=== PATIENT | female | born 1945 | race Caucasian/White ===

== ENCOUNTER 2021-08-25 22:04 | Inpatient (IN) | payer MEDICARE, OTHER ==
[2021-08-25] MEDS ORDERED: NA CHLORIDE 0.9% 0 ML ONE (22:30)
[2021-08-25] MEDS ORDERED: LORazepam 2 MG/ML VIAL ONE (22:30)
[2021-08-25] MEDS ORDERED: LEVETIRACETAM 500 MG/5 ML VIAL IV ONE (22:30)
[2021-08-25] MEDS ORDERED: NA CHLORIDE 0.9% 100 ML IV ONE (22:31)
[2021-08-25] MEDS ORDERED: LABETALOL 20 MG/4ML SYRINGE IV ONE (22:38)
[2021-08-25 22:58] LABS: Absolute Lymphocytes (CBC) 1.6 K/uL (0.7-4.9); Hematocrit 38.7 % (36.0-45.0); MPV 8.8 fL (7.6-11.3); Protime INR 1.1; RBC Red Blood Cell Count 4.65 M/uL (3.86-4.86)
[2021-08-25 23:02] LABS: Urine Blood 1+ (Negative); Urine Glucose Trace (Negative); Urine Protein 3+ (Negative); Urine Specific Gravity 1.025 (1.005-1.030); Urine pH 6.5 (5.0-7.0)
--- NOTE | 2021-08-25 23:55 | EDPHYS ---
Physician Documentation [facility] Name: Clemencia Bryant Age: 76 yrs Sex: Female : 1945 Arrival Date: 08/25/2021 Time: 22:02 Bed 2 Private MD: ED Sundeep Ruiz HPI: 08/25 22:28 This 76 yrs old Female presents to ER via Unassigned with complaints of leonidas seizure , no hx. 22:28 The patient presents after having a single isolated seizure, that lasted an unknown leonidas period of time. Character of seizure(s): Loss of consciousness: the patient experienced loss of consciousness, Motor activity: generalized, Incontinence: none, Apnea: the patient did not experience apnea, Circulation: the patient did not experience evidence of pulse disturbance. Seizure onset: just prior to arrival. Context: the seizure(s) was witnessed, by a bystander, occurred at home, occurred while the patient was at rest. Seizure Hx: the patient has no previous seizure history. Associated injury: The patient did not suffer any apparent associated injury. EMS care: none. The patient has not experienced similar symptoms in the past. Historical: - Allergies: 23:05 Codeine; lp1 - Home Meds: 23:05 Unable to obtain [Active]; lp1 - PMHx: 23:05 Unable to Obtain; lp1 - Immunization history:: Adult Immunizations unknown. - Family history:: not pertinent. - Social history:: Smoking status: unknown. ROS: 22:28 Constitutional: Negative for fever, chills, and weight loss, Eyes: Negative for injury, leonidas pain, redness, and discharge, ENT: Negative for injury, pain, and discharge, Neck: Negative for injury, pain, and swelling, Cardiovascular: Negative for chest pain, palpitations, and edema, Respiratory: Negative for shortness of breath, cough, wheezing, and pleuritic chest pain, Abdomen/GI: Negative for abdominal pain, nausea, vomiting, diarrhea, and constipation, Back: Negative for injury and pain, : Negative for injury, bleeding, discharge, and swelling, MS/Extremity: Negative for injury and deformity, Skin: Negative for injury, rash, and discoloration, Neuro: Negative for headache, weakness, numbness, tingling, and seizure, Psych: Negative for depression, anxiety, suicide ideation, homicidal ideation, and hallucinations, Allergy/Immunology: Negative for hives, rash, and allergies, Endocrine: Negative for neck swelling, polydipsia, polyuria, polyphagia, and marked weight changes, Hematologic/Lymphatic: Negative for swollen nodes, abnormal bleeding, and unusual bruising. 22:28 Neuro: Positive for altered mental status, seizure activity, weakness. Exam: 22:28 Constitutional: This is a well developed, well nourished patient who is awake, alert, leonidas and in no acute distress. Head/Face: Normocephalic, atraumatic. Eyes: Pupils equal round and reactive to light, extra-ocular motions intact. Lids and lashes normal. Conjunctiva and sclera are non-icteric and not injected. Cornea within normal limits. Periorbital areas with no swelling, redness, or edema. ENT: Nares patent. No nasal discharge, no septal abnormalities noted. Tympanic membranes are normal and external auditory canals are clear. Oropharynx with no redness, swelling, or masses, exudates, or evidence of obstruction, uvula midline. Mucous membranes moist. Neck: Trachea midline, no thyromegaly or masses palpated, and no cervical lymphadenopathy. Supple, full range of motion without nuchal rigidity, or vertebral point tenderness. No Meningismus. Chest/axilla: Normal chest wall appearance and motion. Nontender with no deformity. No lesions are appreciated. Cardiovascular: Regular rate and rhythm with a normal S1 and S2. No gallops, murmurs, or rubs. Normal PMI, no JVD. No pulse deficits. Respiratory: Lungs have equal breath sounds bilaterally, clear to auscultation and percussion. No rales, rhonchi or wheezes noted. No increased work of breathing, no retractions or nasal flaring. Abdomen/GI: Soft, non-tender, with normal bowel sounds. No distension or tympany. No guarding or rebound. No evidence of tenderness throughout. Back: No spinal tenderness. No costovertebral tenderness. Full range of motion. Female : Normal external genitalia. Skin: Warm, dry with normal turgor. Normal color with no rashes, no lesions, and no evidence of cellulitis. MS/ Extremity: Pulses equal, no cyanosis. Neurovascular intact. Full, normal range of motion. Psych: Awake, alert, with orientation to person, place and time. Behavior, mood, and affect are within normal limits. 22:28 Neuro: Orientation: unable to test, Mentation: unable to test, Memory: unable to test, Cranial nerves: no acute changes, Cerebellar function: unable to test, Motor: unable to test, Sensation: no obvious gross deficits, appropriate no acute changes, Gait: not tested. Babinski testing is normal, seizure activity, grand mal type is displayed. 22:48 ECG was reviewed by the Attending Physician. leonidas Vital Signs: 22:05 BP 191 / 127; Pulse 118; Resp 17 S; Pulse Ox 95% on R/A; al4 22:06 Temp 97.9(A); lp1 22:25 BP 263 / 87; Pulse 102; Resp 17; Pulse Ox 100% ; lp1 22:30 BP 183 / 75; Pulse 94; Resp 18; Pulse Ox 100% on 15% Non-rebreather mask; lp1 22:45 BP 174 / 63; Pulse 92; Resp 17; Pulse Ox 100% on 15% Non-rebreather mask; lp1 23:00 BP 159 / 79; Pulse 91; Resp 22; Pulse Ox 100% on 15% Non-rebreather mask; Weight 40.82 lp1 kg; 23:30 BP 206 / 75; Pulse 111; Resp 23; Pulse Ox 100% on 2 lpm NC; lp1 04/06 00:00 BP 235 / 85; Pulse 113; Resp 26; Pulse Ox 100% on 2 lpm NC; lp1 00:45 BP 235 / 92; Pulse 95; Resp 22; Pulse Ox 100% on 2 lpm NC; lp1 01:15 BP 213 / 88; Pulse 86; Resp 24; Pulse Ox 99% on 2 lpm NC; lp1 01:45 BP 218 / 92; Pulse 95; Resp 26; Pulse Ox 99% on 2 lpm NC; lp1 02:00 BP 211 / 83; Pulse 92; Resp 26; Pulse Ox 99% on 2 lpm NC; lp1 02:15 BP 167 / 80; Pulse 95; Resp 18; Pulse Ox 99% on 2 lpm NC; lp1 02:30 BP 177 / 70; Pulse 92; Resp 19; Pulse Ox 99% on 2 lpm NC; lp1 02:45 BP 176 / 72; Pulse 95; Resp 20; Pulse Ox 99% on 2 lpm NC; lp 03:00 BP 169 / 75; Pulse 95; Resp 20; Pulse Ox 100% on 2 lpm NC; lp1 Trice Coma Score: 08/25 22:25 Eye Response: to pain(2). Verbal Response: incomprehensible(2). Motor Response: lp1 localizes pain(5). Total: 9. 08/26 00:00 Eye Response: to pain(2). Verbal Response: incomprehensible(2). Motor Response: lp1 withdraws from pain(4). Total: 8. 02:00 Eye Response: to voice(3). Verbal Response: inappropriate words(3). Motor Response: lp1 withdraws from pain(4). Total: 10. MDM: 08/25 22:12 Patient medically screened. [facility] 22:31 Differential diagnosis: cerebral vascular accident, cardiac arrhythmia, seizure. Data [facility] reviewed: vital signs, nurses notes, lab test result(s), EKG, radiologic studies, CT scan. Data interpreted: life science technical officer: rate is 115 beats/min, rhythm is regular, Pulse oximetry: on room air is 99 %. Test interpretation: by ED physician or midlevel provider: ECG, plain radiologic studies. Counseling: I had a detailed discussion with the patient and/or guardian regarding: the historical points, exam findings, and any diagnostic results supporting the discharge/admit diagnosis, lab results, radiology results. 08/25 22:17 Order name: Basic Metabolic Panel; Complete Time: : [facility] 08/25 22:17 Order name: CBC with Diff; Complete Time: 23:53 [facility] 08/25 22:17 Order name: LFT's; Complete Time: : [facility] 08/25 22:17 Order name: Magnesium; Complete Time: : [facility] 08/25 22:17 Order name: NT PRO-BNP; Complete Time: : [facility] 08/25 22:17 Order name: PT-INR; Complete Time: 23:53 [facility] 08/25 22:17 Order name: Troponin HS; Complete Time: : [facility] 08/25 22:17 Order name: XRAY Chest (1 view) [facility] 08/25 22:17 Order name: Lipase; Complete Time: :27 [facility] 08/25 22:17 Order name: Urine Culture [facility] 08/25 22:17 Order name: SARS-COV-2 RT PCR (Document "Date of Onset" if Symptomatic); Complete Time: [facility] 23:53 08/25 23:02 Order name: Urine Dipstick-Ancillary; Complete Time: 23:53 EDMS 08/26 00:16 Order name: Blood Culture Adult (2) [facility] 08/26 00:16 Order name: Lactate; Complete Time: 01:15 [facility] 08/25 22:17 Order name: EKG; Complete Time: 22:18 [facility] 08/25 22:17 Order name: Cardiac monitoring; Complete Time: 22:40 [facility] 08/25 22:17 Order name: EKG - Nurse/Tech; Complete Time: 23:03 [facility] 08/25 22:17 Order name: IV Saline Lock; Complete Time: 22:40 [facility] 08/25 22:17 Order name: Labs collected and sent; Complete Time: 22:40 [facility] 08/25 22:17 Order name: O2 Per Protocol; Complete Time: 22:40 [facility] 08/25 22:17 Order name: CT Head Brain wo Cont 08/25 22:17 Order name: O2 Sat Monitoring; Complete Time: 22:40 [facility] 08/25 22:17 Order name: Urine Dipstick-Ancillary (obtain specimen); Complete Time: 23:03 [facility] 08/25 22:17 Order name: Seizure Precautions; Complete Time: 22:40 [facility] 08/25 23:04 Order name: Labs - recollect needed: green top needed; Complete Time: 00:58 mw2 08/26 01:28 Order name: Shi; Complete Time: 02:22 [facility] 08/26 01:37 Order name: IV - Large Bore; Complete Time: 02:29 [facility] EC:48 Rate is 95 beats/min. Rhythm is regular. QRS [place] is Normal. NE interval is normal. QRS leonidas interval is normal. QT interval is normal. No Q waves. T waves are Normal. No ST changes noted. Clinical impression: NSR w/ Non-specific ST/T Changes and No evidence of ischemia. Interpreted by me. Reviewed by me. Administered Medications: 22:30 Drug: Ativan (LORazepam) 2 mg Route: IVP; Site: right hand; lp1 23:00 Follow up: Response: Marked relief of symptoms lp1 22:32 Drug: Keppra (levETIRAcetam) 1000 mg Route: IV; Rate: per protocol; Site: right hand; lp1 22:45 Follow up: IV Status: Completed infusion; IV Intake: 100ml lp1 08/26 00:17 Drug: Labetalol 10 mg Route: IVP; Infused Over: 2 mins; Site: right wrist; al4 01:01 Drug: Labetalol 10 mg Route: IVP; Infused Over: 2 mins; Site: left wrist; al4 01:05 Follow up: MD aware of medication administration al4 01:53 Follow up: Response: Blood pressure is lowered lp1 01:52 Drug: Magnesium Sulfate 1 grams Route: IVPB; Infused Over: 1 hrs; Site: left forearm; lp1 02:51 Follow up: IV Status: Completed infusion; IV Intake: 100ml lp1 01:52 Drug: NS 0.9% with KCl 20 mEq/L 1000 ml Route: IV; Rate: 100 ml/min; Site: left forearm;lp1 02:51 Follow up: IV Status: Infusion continued upon admission lp1 01:53 Drug: Zosyn (piperacillin-tazobactam) 3.375 grams Route: IVPB; Infused Over: 60 mins; lp1 Site: right wrist; 02:51 Follow up: IV Status: Completed infusion; IV Intake: 100ml lp1 01:53 Not Given (Patient unable to follow commands at this time ): Labetalol 100 mg PO once lp1 02:03 Drug: Cardene (niCARdipine) 5 mg/hr Route: IV; Rate: per protocol; Site: left forearm; lp1 02:22 Follow up: Rate change 2.5 mg/hr lp1 02:51 Follow up: IV Status: Infusion continued upon admission lp1 02:51 Drug: Potassium Chloride 20 mEq Route: IV; Rate: per protocol; Site: left forearm; lp1 02:54 Follow up: IV Status: Infusion continued upon admission lp1 Disposition Summary: 08/25/21 23:55 Hospitalization Ordered Hospitalization Status: Inpatient Admission leonidas Provider: Eran Dosuza cha Condition: Fair leonidas Problem: new leonidas Symptoms: have improved leonidas Bed/Room Type: Standard leonidas Location: Intensive Care Unit(08/26/21 02:17) cg Room Assignment: 3-(08/26/21 02:17) cg Diagnosis - Epileptic seizures related to external causes, not intractable leonidas - Essential (primary) hypertension leonidas - Pneumonia due to other specified bacteria - bilateral leonidas - Hypokalemia leonidas - Hypomagnesemia leonidas - Acute kidney failure, unspecified leonidas - Hypertensive encephalopathy leonidas Forms: - Medication Reconciliation Form leonidas - SBAR form leonidas Signatures: Dispatcher [employer] EDSundeep Moran MD MD cha Pena, Laura, RN RN lp1 Ashley Cedillo RN RN Lisseth Mcfadden 2 Devon Chavez4 Corrections: (The following items were deleted from the chart) 08/25 23:05 22:33 Allergies: No Known Allergies; al4 lp1 08/26 01:39 04 23:55 leonidas 08/26 01:53 01:39 215 cg cg 02:17 08/25 23:55 Telemetry/MedSurg (Inpatient) leonidas 08/26 02:17 01:53 cg cg
--- NOTE | 2021-08-25 23:55 | ER ---
Nurse's Notes [facility] Name: Clemencia Bryant Age: 76 yrs Sex: Female : 1945 Arrival Date: 08/25/2021 Time: 22:02 Bed 2 Private MD: Diagnosis: Epileptic seizures related to external causes, not intractable;Essential (primary) hypertension;Pneumonia due to other specified bacteria-bilateral;Hypokalemia;Hypomagnesemia;Acute kidney failure, unspecified;Hypertensive encephalopathy Presentation: 08/25 22:05 Initial Sepsis Screen: Does the patient meet any 2 criteria? No. Patient's initial al4 sepsis screen is negative. Does the patient have a suspected source of infection? No. Patient's initial sepsis screen is negative. Risk Assessment: Do you want to hurt yourself or someone else? Patient reports no desire to harm self or others. Onset of symptoms was August 25, 2021. 22:05 Acuity: [place] 3 al4 22:23 Chief complaint: EMS states: patient found unresponsive, contracted, possible seizure. al4 BGL 146. Patient has not been verbal since arrival. Son called EMS. No baseline orientation was noted. 22:23 Method Of Arrival: EMS al4 22:30 Coronavirus screen: patient unable to respond appropriately to questions for COVID lp1 screening. Ebola Screen: No symptoms or risks identified at this time. 22:45 Acuity: [place] 2 lp1 Historical: - Allergies: 23:05 Codeine; lp1 - Home Meds: 23:05 Unable to obtain [Active]; lp1 - PMHx: 23:05 Unable to Obtain; lp1 - Immunization history:: Adult Immunizations unknown. - Family history:: not pertinent. - Social history:: Smoking status: unknown. Screenin:47 Abuse screen: Denies threats or abuse. Denies injuries from another. Nutritional lp1 screening: No deficits noted. Tuberculosis screening: No symptoms or risk factors identified. Fall Risk Total [place] Fall Scale indicates High Risk Score (45 or more points). Fall prevention measures have been instituted. Side Rails Up X 2 Frequent Obs/Assessments Occuring Family Present and informed to notify staff if the need to leave the bedside As available patient and family educated on Fall Prevention Program and Strategies. Assessment: 22:28 Neuro: Seizure activity noted at this time. Type of seizure: tonic seizure. Seizure lp1 lasted approximately 2 minutes. Patient is post-ictal at this time. 22:30 General: Appears cachectic, Behavior is unresponsive. Neuro: Level of Consciousness is lp1 post ictal, Pupils are dilated. Cardiovascular: Capillary refill < 3 seconds in bilateral fingers toes Patient's skin is warm and dry. Respiratory: Airway is patent Respiratory effort is even, shallow. GI: Abdomen is flat. : No deficits noted. EENT: No deficits noted. Derm: Skin is fragile, is thin, with poor turgor Skin is dry, Small lesion noted to left side of nose, no drainage. Musculoskeletal: Range of motion: intact in all extremities. 23:04 Reassessment: Patient's son at bedside, reports patient does not take home medications lp1 as prescribed. 23:05 Reassessment: Verbal order from Dr. Skinner to hold Labetalol medication ordered at lp1 this time. 23:20 Reassessment: Patient returned from CT. lp1 08/26 00:57 Reassessment: TRENT Cao, Hospitalist at bedside to discuss plan of care with lp1 patient and 2 sons at bedside. 00:57 Neuro: Level of Consciousness is unresponsive, Responsive to painful stimuli. lp1 Respiratory: Airway is patent Respiratory effort is even. Derm: Skin is fragile, is thin, with poor turgor Skin is dry, Skin is pink. 01:30 Reassessment: Discussed with Dr. Skinner patient's continued elevated BP; Orders given.lp1 01:30 General: Appears in no apparent distress. Behavior is unresponsive. Responsive to lp1 painful stimuli. Pain: Unable to use pain scale. FLACC scale score is 0 out of 10. Cardiovascular: Patient's skin is warm and dry. Rhythm is regular. Respiratory: Airway is patent Respiratory effort is even, Respiratory pattern is regular. Derm: Skin is fragile, is thin, with poor turgor Skin is dry, Skin is pink. Musculoskeletal: Range of motion: intact in all extremities. Vital Signs: 08/25 22:05 BP 191 / 127; Pulse 118; Resp 17 S; Pulse Ox 95% on R/A; al4 22:06 Temp 97.9(A); lp1 22:25 BP 263 / 87; Pulse 102; Resp 17; Pulse Ox 100% ; lp1 22:30 BP 183 / 75; Pulse 94; Resp 18; Pulse Ox 100% on 15% Non-rebreather mask; lp1 22:45 BP 174 / 63; Pulse 92; Resp 17; Pulse Ox 100% on 15% Non-rebreather mask; lp1 23:00 BP 159 / 79; Pulse 91; Resp 22; Pulse Ox 100% on 15% Non-rebreather mask; Weight 40.82 lp1 kg; 23:30 BP 206 / 75; Pulse 111; Resp 23; Pulse Ox 100% on 2 lpm NC; lp1 04 00:00 BP 235 / 85; Pulse 113; Resp 26; Pulse Ox 100% on 2 lpm NC; lp1 00:45 BP 235 / 92; Pulse 95; Resp 22; Pulse Ox 100% on 2 lpm NC; lp1 01:15 BP 213 / 88; Pulse 86; Resp 24; Pulse Ox 99% on 2 lpm NC; lp1 01:45 BP 218 / 92; Pulse 95; Resp 26; Pulse Ox 99% on 2 lpm NC; lp1 02:00 BP 211 / 83; Pulse 92; Resp 26; Pulse Ox 99% on 2 lpm NC; lp1 02:15 BP 167 / 80; Pulse 95; Resp 18; Pulse Ox 99% on 2 lpm NC; lp1 02:30 BP 177 / 70; Pulse 92; Resp 19; Pulse Ox 99% on 2 lpm NC; lp1 02:45 BP 176 / 72; Pulse 95; Resp 20; Pulse Ox 99% on 2 lpm NC; lp1 03:00 BP 169 / 75; Pulse 95; Resp 20; Pulse Ox 100% on 2 lpm NC; lp1 Trice Coma Score: 08/25 22:25 Eye Response: to pain(2). Verbal Response: incomprehensible(2). Motor Response: lp1 localizes pain(5). Total: 9. 08/26 00:00 Eye Response: to pain(2). Verbal Response: incomprehensible(2). Motor Response: lp1 withdraws from pain(4). Total: 8. 02:00 Eye Response: to voice(3). Verbal Response: inappropriate words(3). Motor Response: lp1 withdraws from pain(4). Total: 10. ED Course: 08/25 22:02 Patient arrived in ED. lp1 22:12 Sundeep Skinner MD is Attending Physician. leonidas 22:20 Patient has correct armband on for positive identification. Bed in low position. Call lp1 light in reach. Seizure precautions initiated. security monitor on. Pulse ox on. NIBP on. 22:25 Inserted saline lock: 24 gauge in right hand, using aseptic technique. Blood collected. lp1 22:33 Triage completed. al4 23:00 Straight cath inserted, using sterile technique, 16 Fr. Specimen obtained. lp1 23:03 Arm band placed on right wrist. lp1 23:22 CT Head Brain wo Cont In Process Unspecified. EDMS 23:41 XRAY Chest (1 view) In Process Unspecified. EDMS 23:47 Ameena Nieto RN is Primary Nurse. lp1 23:54 Eran Dsouza is Hospitalizing Provider. [facility] 08/26 00:45 Inserted saline lock: 22 gauge in left forearm, using aseptic technique. Blood lp1 collected. 00:45 First set of blood cultures drawn by me. lp1 01:26 Notified ED physician of a critical lab result(s). potassium of 2.8 Dr Brody carr notified. 02:20 Shi cath inserted, using sterile technique, 16 Fr., by me, balloon inflated, to lp1 gravity drainage. 02:24 No provider procedures requiring assistance completed. Patient admitted, IV remains in lp1 place. Administered Medications: 08/25 22:30 Drug: Ativan (LORazepam) 2 mg Route: IVP; Site: right hand; lp1 23:00 Follow up: Response: Marked relief of symptoms lp1 22:32 Drug: Keppra (levETIRAcetam) 1000 mg Route: IV; Rate: per protocol; Site: right hand; lp1 22:45 Follow up: IV Status: Completed infusion; IV Intake: 100ml 1 08/26 00:17 Drug: Labetalol 10 mg Route: IVP; Infused Over: 2 mins; Site: right wrist; al4 01:01 Drug: Labetalol 10 mg Route: IVP; Infused Over: 2 mins; Site: left wrist; al4 01:05 Follow up: MD aware of medication administration al4 01:53 Follow up: Response: Blood pressure is lowered lp1 01:52 Drug: Magnesium Sulfate 1 grams Route: IVPB; Infused Over: 1 hrs; Site: left forearm; lp1 02:51 Follow up: IV Status: Completed infusion; IV Intake: 100ml lp1 01:52 Drug: NS 0.9% with KCl 20 mEq/L 1000 ml Route: IV; Rate: 100 ml/min; Site: left forearm;lp1 02:51 Follow up: IV Status: Infusion continued upon admission lp1 01:53 Drug: Zosyn (piperacillin-tazobactam) 3.375 grams Route: IVPB; Infused Over: 60 mins; lp1 Site: right wrist; 02:51 Follow up: IV Status: Completed infusion; IV Intake: 100ml lp1 01:53 Not Given (Patient unable to follow commands at this time ): Labetalol 100 mg PO once lp1 02:03 Drug: Cardene (niCARdipine) 5 mg/hr Route: IV; Rate: per protocol; Site: left forearm; lp1 02:22 Follow up: Rate change 2.5 mg/hr lp1 02:51 Follow up: IV Status: Infusion continued upon admission lp1 02:51 Drug: Potassium Chloride 20 mEq Route: IV; Rate: per protocol; Site: left forearm; lp1 02:54 Follow up: IV Status: Infusion continued upon admission lp1 Intake: 08/25 22:45 IV: 100ml; Total: 100ml. lp1 08/26 02:51 IV: 100ml; Total: 200ml. lp1 02:51 IV: 100ml; Total: 300ml. lp1 Outcome: 08/25 23:55 Decision to Hospitalize by Provider. leonidas 08/26 02:39 critical lp1 Instructed on the need for admit. 03:00 Admitted to ICU accompanied by nurse, room 3, with oxygen, on monitor, with chart, lp1 Report called to YOLANDA Farmer 03:10 Patient left the ED. lp1 Signatures: Dispatcher [employer] EDMS Sundeep Skinner MD MD cha Ballard, Brenda, RN RN bb Pena, Laura, RN RN lp1 Devon Chavez4 Corrections: (The following items were deleted from the chart) 08/25 23:05 22:33 Allergies: No Known Allergies; al4 lp1 23:24 23:00 BP 159 / 79; Pulse 91bpm; Resp 22bpm; Pulse Ox 100% 02 15% Non-rebreather mask; lp1 lp1 08/26 00:17 00:16 Labetalol 10 mg IVP in right wrist over 2 mins al4 al4 01:52 01:52 Potassium Chloride 20 mEq IV at per protocol in left forearm lp1 lp1 02:35 01:30 Derm: Skin is fragile, is thin, with poor turgor Skin is dry, Skin is normal, lp1 lp1 02:42 00:57 Reassessment: TRENT Cao, Hospitalist at bedside to discuss plan of care lp1 with patient and 2 sons at bedside lp1
[2021-08-26] MEDS ORDERED: NA CHLORIDE 0.9% 100 ML IV ONE (00:26)
[2021-08-26] MEDS ORDERED: PIPERACIL/TAZO 3.375 GM VIAL IV ONE (00:27)
[2021-08-26 01:26] LABS: Albumin 1.3 g/dL (3.4-5.0); Bilirubin Direct 0.1 mg/dL (0-0.2); Bilirubin Total 0.3 mg/dL (0.2-1.0); Magnesium 1.7 mg/dL (1.8-2.4); Potassium 2.8 mmol/L (3.5-5.1); Protein, Total 6.7 g/dL (6.4-8.2); Troponin High Sensitivity 39.4 pg/mL (<58.9)
[2021-08-26] MEDS ORDERED: NS KCL 20MEQ 1,000 ML IV ONE (01:42)
[2021-08-26] MEDS ORDERED: KCL 20 MEQ/100 mL IVPB 100 ML IV ONE (01:43)
[2021-08-26] MEDS ORDERED: MAGNESIUM SULFATE 1 gm IVPB 1 GM/100 ML BAG IV ONE (01:43)
[2021-08-26] MEDS ORDERED: Nicardipine/NS 25 MG/250 ML KIT IV ONE (02:01)
--- NOTE | 2021-08-26 02:48 | P.HP ---
Certification for Inpatient Patient admitted to: Inpatient With expected LOS: >2 Midnights Patient will require the following post-hospital care: None Practitioner: I am a practitioner with admitting privileges, knowledge of patient current condition, hospital course, and medical plan of care. Services: Services provided to patient in accordance with Admission requirements found in Title 42 Section 412.3 of the Code of Federal Regulations Patient History Date of Service: 08/26/21 Reason for admission: AMS History of Present Illness: Patient is a 76-year-old female with past medical history of hypertension, coronary artery disease status post quadruple bypass, recurrent pneumonia, and malnutrition who presented to the ED via EMS after being found unresponsive by her son. EMS stated that she experienced 2 seizures and has been unresponsive since their arrival. Upon arrival to the ED, GCS 9. She was given Ativan and Keppra and did not experience any new seizures. Head CT was negative for acute findings. WBC elevated at 12, potassium 2.8, creatinine 1.94, magnesium 1.7. Blood pressure severely elevated at 235 systolic. It rem ained elevated after labetalol so she was started on Cardene with significant improvement. Upon my assessment of the patient, her GCS is 10. 2 sons present at bedside. They state patient has recurrent pneumonia and does not eat very much. She has had several falls within the past year, they are unsure if she has had any head trauma. Anytime EMS comes to take her to [facility], she signed a refusal paper as she does not like this hospital. Sons also state that patient had a seizure about 15 years ago but was never further evaluated and she has not had another since. She lives fairly independently at home and is oriented fully at baseline. Will admit patient for further evaluation and treatment of altered mental status with neurology consulting. Allergies codeine Allergy (Verified 12/16/13 20:28) Shortness of breath Home medications list reviewed: Yes Home Medications: Amlodipine Besylate 10 mg PO DAILY 12/16/13 Aspirin 81 mg PO BID 12/16/13 Cilostazol [Pletal] 100 mg PO DAILY 12/16/13 Clopidogrel Bisulfate [Clopidogrel] 75 mg PO DAILY 12/16/13 Enalapril Maleate [Vasotec] 20 mg PO BID 12/16/13 Gabapentin 300 mg PO BID 12/16/13 Hydralazine [Apresoline*] 50 mg PO TID 12/16/13 Isosorbide Mononitrate [Isosorbide Mononitrate ER] 1 tab PO BID 12/16/13 Pravastatin Sodium [Pravachol] 2 tab PO BEDTIME 12/16/13 Solifenacin [Vesicare*] 10 mg PO DAILY 12/16/13 Zolpidem Tartrate 10 mg PO BEDTIME 12/16/13 carvediloL [Coreg*] 25 mg PO BID 12/16/13 levoFLOXacin [Levaquin*] 500 mg PO DAILY #7 tab 12/17/13 - Past Medical/Surgical History Diabetic: No -: HTN -: Chronic Back pain -: CAD, [facility]iology-[facility] -: Hyperlipidemia -: PVD -: Anxiety -: 3 heart stents -: carotid surger -: quadruple bypass -: vein striping -: Aortic bypass in abdomen Psychosocial/ Personal History: , Children-4, lives with daughter - Family History Family History: Reviewed- Non-Contributory - Social History Smoking Status: Former smoker Alcohol use: No CD- Drugs: No Caffeine use: Yes Place of Residence: Home Review of Systems is unable to be obtained Physical Examination - Physical Exam General: Alert, In no apparent distress, Cachectic, Other (responsive only to painful stimuli ) HEENT: Atraumatic, PERRLA, EOMI, Sclerae nonicteric Neck: 2+ carotid pulse no bruit, No LAD, Without JVD or thyroid abnormality Respiratory: Clear to auscultation bilaterally, Normal air movement Cardiovascular: Regular rate/rhythm, Normal S1 S2 Gastrointestinal: Normal bowel sounds, No tenderness Musculoskeletal: No tenderness Integumentary: No rashes Neurological: Other (responsive only to painful stimuli ) Urinary: Shi catheter - Studies Laboratory Data (last 24 hrs) 08/26/21 00:04: Sodium 138, Potassium 2.8 L*, BUN 30 H, Creatinine 1.94 H, Glucose 201 H, Magnesium 1.7 L, Total Bilirubin 0.3, AST 20, ALT 12, Alkaline Phosphatase 134 H, Lipase 107 08/25/21 22:22: PT 12.1, INR 1.10 08/25/21 22:22: WBC 12.0 H, Hgb 12.7, Hct 38.7, Plt Count 377 Assessment and Plan - Problems (Diagnosis) (1) Altered mental status Current Visit: Yes Status: Acute Qualifiers: Altered mental status type: coma Coma depth: Trice coma 9-12 Coma timing: at hospital admission Qualified Code(s): R40.2423 - [place] coma scale score 9-12, at hospital admission (2) Malnutrition Current Visit: Yes Status: Chronic Qualifiers: Malnutrition type: protein-calorie malnutrition Protein-calorie malnutrition severity: moderate Qualified Code(s): E44.0 - Moderate protein- calorie malnutrition (3) Malignant hypertensive urgency Current Visit: Yes Status: Acute (4) New onset seizure Current Visit: Yes Status: Acute (5) CAD (coronary artery disease) Current Visit: No Status: Chronic Qualifiers: Coronary Disease-Associated Artery/Lesion type: bypass graft, other Associated angina: without angina Qualified Code(s): I25.810 - Atherosclerosis of coronary artery bypass graft(s) without angina pectoris (6) Dehydration Current Visit: Yes Status: Acute (7) Hypokalemia Current Visit: Yes Status: Acute - Plan -Patient remains altered. We will continue IV fluids with potassium and magnesium replacement and antibiotics. Monitor mental status. -Head CT negative for acute findings. However, per patient's sons, she has had several falls in the past. Consider MRI if symptoms persist. Dr. George has been consulted. -Per EMS, patient had 2 seizures today. She was given Keppra and Ativan in the ED and has not experienced any more seizures. She does not have a history of epilepsy although she did apparently have a seizure about 15 years ago without any follow-up care. EEG request has been made. -Patient's son states that she does not eat very much. She does appear malnourished. Albumin is very low. -Chest x-ray showed mild pneumonia. Family states she does get pneumonia a lot. Continue antibiotics. -Patient's blood pressure was severely elevated in the ED. It has improved with Cardene. We will continue to monitor. -Patient has been slightly tachypneic. continue to monitor. PRN supplemental oxygen. -We will hold off on any anticoagulation for now. DVT PPx: SCDs Code: Full Patient's son, Dwight, can be reached at [phone] Discharge Plan: Home Plan to discharge in: Greater than 2 days - Advance Directives Does patient have a Living Will: Yes Does patient have a Durable POA for Healthcare: Yes - Code Status/Comfort Care Code Status Assessed: Yes (Full) Critical Care: No Time Spent Managing Pts Care (In Minutes): 70
[2021-08-26] MEDS ORDERED: ONDANSETRON 4 MG/2 ML VIAL IV PRN (03:40)
[2021-08-26] MEDS ORDERED: ACETAMINOPHEN 650MG/RECT SUPP PR PRN (03:40)
[2021-08-26] MEDS ORDERED: LORazepam 2 MG/ML VIAL IV PRN (03:40)
[2021-08-26] MEDS ORDERED: Nicardipine in Saline, Iso-Osm 20 MG/200 ML IV.SOLN. IV SCH (04:00)
[2021-08-26 04:02] LABS: Absolute Lymphocytes (CBC) 0.6 K/uL (0.7-4.9); Hematocrit 35.5 % (36.0-45.0); Lymphocytes % 3.9 % (15.3-44.8); RBC Red Blood Cell Count 4.24 M/uL (3.86-4.86)
[2021-08-26] MEDS: D5.45NS W/KCL 20MEQ 1,000 ML IV SCH ×2 (04:17→17:50)
[2021-08-26 04:33] LABS: Albumin 1.4 g/dL (3.4-5.0); Bilirubin Total 0.2 mg/dL (0.2-1.0); Magnesium 1.8 mg/dL (1.8-2.4); Phosphorus 3.5 mg/dL (2.5-4.9); Protein, Total 6.8 g/dL (6.4-8.2); Thyroid Stimulating Hormone 1.6 uIU/mL (0.360-3.740)
[2021-08-26 04:37] LABS: Potassium 2.8 mmol/L (3.5-5.1)
[2021-08-26 05:22] LABS: Blood Morphology Comment NOT SEEN (NOT SEEN); Platelet Estimate ADEQ
[2021-08-26] MEDS: NICARDIPINE HCL IV SCH ×5 (06:45→18:51)
[2021-08-26] MEDS: NA CHLORIDE IV SCH ×5 (06:45→18:51)
--- NOTE | 2021-08-26 07:11 | EKG ---
Test Date: 2021-08-25 Test Time: 22:41:24 Chief Electrician: BRIAN MEASUREMENT RESULTS: Intervals: Rate: 95 NH: 160 QRSD: 72 QT: 368 QTc: 462 [place]: P: 73 NH: 160 QRS: 37 T: -51 INTERPRETIVE STATEMENTS: Sinus rhythm with occasional premature ventricular complexes Possible Left atrial enlargement Nonspecific ST and T wave abnormality Abnormal ECG Compared to ECG 12/16/2013 19:23:09 Ventricular premature complex(es) now present ST (T wave) deviation now present Electronically Signed On 08-26-21 07:09:28 CDT by Marcello Carrasco
[2021-08-26 07:49] LABS: Magnesium 2.3 mg/dL (1.8-2.4); Potassium 3.2 mmol/L (3.5-5.1)
[2021-08-26] MEDS ORDERED: NICARDIPINE HCL IV SCH ×3 (08:00→19:00)
[2021-08-26] MEDS ORDERED: NA CHLORIDE IV SCH ×3 (08:00→19:00)
[2021-08-26] MEDS: PIPER TAZO 3.375 GM in NA CHLORIDE 0.9% 100 ML IV SCH ×2 (08:14→20:26)
[2021-08-26] MEDS: KCL 20 MEQ/100 mL IVPB 20 MEQ/100 ML BAG IV SCH ×2 (08:16→10:28)
[2021-08-26 09:09] LABS: Urine Appearance TURBID (Clear); Urine Bilirubin NEGATIVE (Negative); Urine Blood 2+ (Negative); Urine Glucose 2+ (Negative); Urine Protein 3+ (Negative); Urine Specific Gravity 1.015 (1.005-1.030); Urine Urobilinogen 0.2 mg/dL (0.2-1.0)
[2021-08-26 09:12] LABS: Urine Color YELLOW (Yellow); Urine Microscopic Reflex ORDER UMIC
[2021-08-26 09:30] LABS: Urine Bacteria 20-50 /HPF (<20); Urine Mucus 3+ /HPF (NONE SEEN)
[2021-08-26] MEDS: levETIRAcetam 500 MG in NA CHLORIDE 0.9% 100 ML IV SCH ×2 (11:48→20:26)
--- NOTE | 2021-08-26 11:51 | RAD REPORT ---
EXAM DESCRIPTION: CT - Head Brain Wo Cont - 08/26/2021 6:58 am CLINICAL HISTORY: SEIZURE. TECHNIQUE: Noncontrast CT through the head was performed. Axial, coronal, and sagittal reconstructio ns were created and sent to PACS. This exam was performed according to our departmental dose-optimiza tion program which includes use of Automated Exposure Control, adjustment of the mA and/or kV accordi ng to patient size and/or use of iterative reconstruction technique. COMPARISON: None. FINDINGS: There is diffuse age-appropriate atrophy throughout the brain parenchyma. Mild periventric ular white matter changes are present, and there is mild ex vacuo dilatation of the ventricular syste m. There is no intra-axial or extra-axial bleed. There is no mass or mass effect. Small regions of ch ronic encephalomalacia in the left frontal and parietal lobes. Small mucosal retention cyst in the left maxillary sinus. The remaining visualized paranasal sinuses and mastoid air cells are patent. No acute fracture is identified. IMPRESSION: 1. No acute intracranial abnormality identified. 2. Chronic findings. Electronically signed by: Lia Velez MD 08/25/2021 11:34 PM CDT Due to temporary technical issues with the PACS/Fluency reporting system, reports are being signed by the in house radiologist without review as a courtesy to ensure prompt reporting. The interpreting r adiologist is fully responsible for the content of the report.
--- NOTE | 2021-08-26 12:32 | P.PN ---
Date of Service: 08/26/21 Patient seen and examined. She remains unresponsive. Seen at the time EEG was in progress. Blood pressure improved on the nicardipine drip. Diagnosis: Metabolic encephalopathy Malignant hypertension Seizure disorder. Cachexia Plan: Continue current antiseizure regimen. Nicardipine drip for target systolic blood pressure of less than 140. Awaiting neurology input Follow EEG result. Keep n.p.o. for now due to AMS. Follow culture results. Continue IV Zosyn
--- NOTE | 2021-08-26 12:56 | RAD REPORT ---
EXAM DESCRIPTION: RAD - Chest Single View - 08/25/2021 11:39 pm CLINICAL HISTORY: The patient is 76 years old and is Female; COUGH TECHNIQUE: Frontal view of the chest. COMPARISON: No relevant prior studies available. FINDINGS: Lungs: Scattered interstitial opacities bilaterally, right greater than left. Pleural space: Unremarkable. No pneumothorax. Heart: Unremarkable. Mediastinum: Unremarkable. Bones/joints: Median sternotomy wires. Vasculature: Aortic and scattered vascular calcifications. Vascular stent overlying the right neck. Upper abdomen: Elevation of the left hemidiaphragm. IMPRESSION: Scattered interstitial opacities bilaterally, right greater than left. Electronically signed by: Tyler Segovia MD 08/25/2021 11:49 PM CDT Due to temporary technical issues with the PACS/Fluency reporting system, reports are being signed by the in house radiologist without review as a courtesy to ensure prompt reporting. The interpreting r adiologist is fully responsible for the content of the report.
[2021-08-26 17:03] LABS: Arterial Blood Carboxyhemoglob 0.6 % (0-1.5); Blood Gas Oxyhemoglobin 94.6 % (94-97); Blood O2 Saturation 96.4 % (92-98.5)
[2021-08-27] MEDS: D5.45NS W/KCL 20MEQ 1,000 ML IV SCH ×3 (04:36→19:40)
[2021-08-27 04:51] LABS: Absolute Lymphocytes (CBC) 1.4 K/uL (0.7-4.9); Hematocrit 30.3 % (36.0-45.0); Lymphocytes % 8.9 % (15.3-44.8); MPV 7.9 fL (7.6-11.3); RBC Red Blood Cell Count 3.64 M/uL (3.86-4.86)
[2021-08-27] MEDS: NICARDIPINE HCL IV SCH ×2 (05:30→16:29)
[2021-08-27] MEDS: NA CHLORIDE IV SCH ×2 (05:30→16:29)
[2021-08-27 05:32] LABS: Albumin 1.4 g/dL (3.4-5.0); Bilirubin Total 0.1 mg/dL (0.2-1.0); Magnesium 1.9 mg/dL (1.8-2.4); Phosphorus 2.3 mg/dL (2.5-4.9); Potassium 3.6 mmol/L (3.5-5.1)
[2021-08-27] MEDS ORDERED: KCL 20 MEQ/100 mL IVPB 20 MEQ/100 ML BAG IV SCH (07:00)
--- NOTE | 2021-08-27 09:16 | CON ---
Consultation called because of altered mental status following seizures. History Of Present Illness: Ms. Bryant is a 76-year-old patient with multiple medical problems includi ng hypertension, chronic back pain, coronary artery disease status post bypass and 3 cardiac stents, dyslipidemia, and history of remote seizure, who comes in with [id number] seizures witnessed by the patient's son. She is unresponsive after the seizures. She was given Ativan and Keppra. Blood wor k reveals severe hypokalemia, potassium 2.8, and dehydration with creatinine 1.94. Magnesium low at 1.7. She has not had additional seizures since her hospitalization. Her chest x-ray suggests possib ility of pneumonia and she is on antibiotics. The patient has been in ICU since admission she has yet not become more responsive. Her head CT scan showed no acute ischemic or hemorrhagic ch israel, but age-appropriate small-vessel ischemic disease. Blood work including cultures showed no keturah dence of infection, however, the white blood cell count was elevated to 16,000 earlier today with 92. 2% neutrophils and that did suggest the possibility of an infection. Her urinalysis showed 3+ estera se, too numerous to count white blood cells, 20-50 bacteria, 3+ mucus, and again, she is on antibioti cs. COVID-19 is negative. Past Medical History: As noted in addition to anxiety, peripheral vascular disease. Allergies: CODEINE. Medications: At home, amlodipine 10 mg daily, aspirin 81 mg daily, Pletal 100 mg daily, clopidogrel 75 mg Vasotec 10 mg twice daily, gabapentin 300 mg twice daily, Apresoline 50 mg 3 times d aily, isosorbide daily, Pravachol 2 tablets twice daily , VESIcare 10 mg daily, zolpidem 10 mg at bedtime, Coreg 25 mg twice daily, and she has been on levofloxacin listed at 10 day s 500 mg daily on her admission. Past Surgical History: Cardiac stents x3 abdomen, and a 4-vessel cardiac bypass. Family History: Noncontributory. Social History: Smoked in the past. No recent cigarette use. No alcohol or IV drug use. Lives at home with family. Review of Systems: The patient is not responsive today to give a review of systems. Physical Examination: Vital Signs: Blood pressure 151/57, pulse 105, respiratory rate of 24, temperature is 97.6. General: Ms. Bryant is in bed. She is moving arms and legs little, but spontaneously turned head jaiden e-to-side. She does not have an obvious focal cranial nerve deficit. She did again turn her eyes to sound and partially tracked it with visual threat response and again, no obvious focal cranial nerve deficits. Motor: Could not fully assess, but there was increased tone, more on the left than the right upper e xtremity. There was some paratonia noted and her lower extremities, she had focal withdrawal to stim ulation of the feet and that was symmetric, slightly increased tone in the lower extremities. Unable to assess coordination, full strength, or gait. Assessment: Ms. Bryant is a 76-year-old patient with remote history of seizures. She has severe elect rolyte abnormalities and urinary tract infection, which showed likely contributing factors to her gio k-to-back seizures. She is now on Keppra 500 mg twice daily with no additional seizures. She is on IV antibiotics, piperacillin tazobactam 3.375 every 12 hours. She has had potassium repla cement and magnesium replacement. Plan: 1.Continue with Keppra as indicated. 2.Continue with IV replacement of electrolytes as appropriate. 3.This patient's head CT scan shows no acute ischemic or hemorrhagic change, but her expected change s related to age prognosis. However, MRI of the brain may be helpful to give an even bett er prognosis of the patient's chance of recovery. She should have an EEG at convenience. The patient will be followed while in the hospital . CHRISTI/BHAVESH Voice ID: [id number] Report ID: [id number]
[2021-08-27] MEDS: PIPER TAZO 3.375 GM in NA CHLORIDE 0.9% 100 ML IV SCH ×2 (09:37→20:25)
[2021-08-27] MEDS: levETIRAcetam 500 MG in NA CHLORIDE 0.9% 100 ML IV SCH ×2 (09:37→20:24)
--- NOTE | 2021-08-27 13:32 | P.PN ---
Subjective Date of Service: 08/27/21 Chief Complaint: AMS Blood pressure has improved. Patient is on nicardipine drip. Mental status is improving slowly. Physical Examination - Vital Signs Temperature: 98.1 F Blood Pressure: 156/56 Pulse: 96 Respirations: 20 Pulse Ox (%): 99 - Studies Microbiology Data (last 24 hrs): 08/26/21 01:32 Blood - Blood Anaerobic Blood Culture - Final Assessment And Plan - Plan Physical Exam General: Somnolent, arousable, cachectic, HEENT: PERRLA, EOMI, Sclerae nonicteric Neck:Without JVD. Respiratory: Clear to auscultation bilaterally, Normal air movement Cardiovascular: Regular rate/rhythm, Normal S1 S2 Gastrointestinal: Normal bowel sounds, No tenderness Musculoskeletal: No tenderness Integumentary: No rashes Neurological: Somnolent, does not follow commands, unable to assess motor. Urinary: Shi catheter Diagnosis Malignant hypertension Metabolic encephalopathy UTI Cachexia Chronic kidney disease stage III Pneumonia Plan: Continue nicardipine drip Speech input appreciated. Patient kept n.p.o. she is unable to follow commands. Admission head CT is negative. Clonidine patch and wean off nicardipine drip as possible. We will start oral Norvasc once patient is awake to tolerate p.o. Blood cultures: No growth to date. Urine culture is growing alpha Streptococcus. Continue IV antibiotics-Zosyn. Supportive measures with IV hydration. Monitor renal function. PT consult once awake and following commands.
[2021-08-27] MEDS ORDERED: CLONIDINE 0.1 MG/PATCH TD SCH (13:45)
--- NOTE | 2021-08-27 14:18 | ECHO ---
HEIGHT: 5 ft 3 in WEIGHT: 87 lb 9.6 oz DATE OF STUDY: 08/27/[address]: roby quintero 2-DIMENSIONAL: YES M.MODE: YES DOPPLER: YES COLOR FLOW: YES TDS: YES PORTABLE: YES DEFINITY: BUBBLE STUDY: DIAGNOSIS: MALIGANT HYPERTENSION CARDIAC HISTORY: CATHERIZATION: YES SURGERY: YES PROSTHETIC VALVE: NO PACEMAKER: NO MEASUREMENTS (cm) DIASTOLIC (NORMALS) SYSTOLIC (NORMALS) IVSd 0.9 (0.6-1.2) LA Diam 2.5 (1.9-4.0) LVEF 60-65% LVIDd 3.9 (3.5-5.7) LVIDs 2.1 (2.0-3.5) %FS 46% LVPWd 0.9 (0.6-1.2) Ao Diam 2.4 (2.0-3.7) 2 DIMENSIONAL ASSESSMENT: RIGHT ATRIUM: NORMAL LEFT ATRIUM: NORMAL RIGHT VENTRICLE: NORMAL LEFT VENTRICLE: NORMAL TRICUSPID VALVE: NORMAL MITRAL VALVE: NORMAL PULMONIC VALVE: NORMAL AORTIC VALVE: NORMAL PERICARDIAL EFFUSION: NONE AORTIC ROOT: NORMAL LEFT VENTRICULAR WALL MOTION: NORMAL DOPPLER/COLOR FLOW: MILD MITRAL REGURGITATION. MILD TRICUSPID REGURGITATION. COMMENTS: NORMAL LEFT VENTRICULAR EJECTION FRACTION 60-65%. NORMAL WALL MOTION. MILD MITRAL REGURGITATION. MILD TRICUSPID REGURGITATION. TECHNOLOGIST: CHRIS ALVARENGA
--- NOTE | 2021-08-27 14:49 | EEG ---
CHART: [id number] TEST ID#: [id number] DATE OF STUDY: 08/26/2021 THE EEG WAS RECORDED PORTBALE IN THE ICU ON A 17 CHANNEL MACHINE. ELECTRODES WERE APPLIED IN THE USUAL MANNER USING THE INTERNATIONAL 10-20 SYSTEM. THE WAKING BACKGROUND RHYTHM IN THIS RECORD CONSISTS OF POORLY DEVELOPED AND POORLY ORGANIZED WAVES OF 6-7 HZ., IN A WIDE DISTRIBUTION WHICH DO NOT ATTENUATE NORMALLY WITH EYE OPENING. MODERATE VOLTAGE 1.5-3 HZ ACTIVITY IS DIFFUSELY EXPRESSED. LOW-VOLTAGE 15-18 HZ ACTIVITY IS EXPRESSED IN THE FRONTAL REGIONS. THERE ARE NO FOCAL OR LATERALIZING FEATURES. NO EPILEPTIFORM ACTIVITY APPEARS. SLEEP DID NOT OCCUR. HYPERVENTILATION WAS NOT PERFORMED. PHOTIC STIMULATION PRODUCED NO DRIVING BILATERALLY. IMPRESSION: THIS IS A MODERATELY ABNORMAL AWAKE ROUTINE EEG DUE TO A MODEREATELY SLOW BACKGROUND. THIS IS A NON-SPECIFIC FINDING INDICATING THE PRESENCE OF A MODERATE DIFFUSE DISTURBANCE IN CEREBRAL FUNCTION.
[2021-08-27] MEDS: HYDRALAZINE HCL 20 MG/ML VIAL IV PRN (20:02)
[2021-08-27] MEDS ORDERED: NA CHLORIDE 0.9% 250 ML ONE (20:34)
[2021-08-28] MEDS: NA CHLORIDE IV SCH ×4 (00:21→20:18)
[2021-08-28] MEDS: NICARDIPINE HCL IV SCH ×4 (00:21→20:18)
[2021-08-28] MEDS ORDERED: Nicardipine/NS 25 MG/250 ML KIT IV ONE (05:04)
[2021-08-28] MEDS: D5.45NS W/KCL 20MEQ 1,000 ML IV SCH ×2 (05:40→13:21)
[2021-08-28 06:02] VITALS: BMI 18.2
[2021-08-28 06:11] LABS: Absolute Lymphocytes (CBC) 1.5 K/uL (0.7-4.9); Hematocrit 31.4 % (36.0-45.0); Lymphocytes % 10.6 % (15.3-44.8); RBC Red Blood Cell Count 3.68 M/uL (3.86-4.86)
[2021-08-28 06:31] LABS: Albumin 1.3 g/dL (3.4-5.0); Bilirubin Total 0.2 mg/dL (0.2-1.0); Protein, Total 5.9 g/dL (6.4-8.2)
[2021-08-28] MEDS: levETIRAcetam 500 MG in NA CHLORIDE 0.9% 100 ML IV SCH ×2 (09:04→20:37)
[2021-08-28] MEDS: PIPER TAZO 3.375 GM in NA CHLORIDE 0.9% 100 ML IV SCH ×2 (09:08→20:37)
--- NOTE | 2021-08-28 15:10 | P.PN ---
Subjective Date of Service: 08/28/21 Chief Complaint: AMS Patient is more awake today and interactive. She is still on nicardipine drip. Physical Examination - Vital Signs Temperature: 97.4 F Blood Pressure: 150/52 Pulse: 101 Respirations: 22 Pulse Ox (%): 98 Assessment And Plan - Plan Physical Exam General: Awake and interactive, cachectic, HEENT: Sclerae nonicteric Neck:Without JVD. Respiratory: Clear to auscultation bilaterally, Normal air movement Cardiovascular: Regular rate/rhythm, Normal S1 S2 Gastrointestinal: Normal bowel sounds, No tenderness Musculoskeletal: No tenderness Integumentary: No rashes Neurological: No focal motor deficit Urinary: Shi catheter Diagnosis Malignant hypertension Metabolic encephalopathy UTI Cachexia Chronic kidney disease stage III Pneumonia Plan: Seen by speech today enalapril thin liquids recommended. Resume oral antihypertensives-Norvasc, and enalapril. Continue clonidine patch. Wean off nicardipine drip Admission head CT is negative. Blood cultures: No growth to date. Urine culture is growing alpha Streptococcus. Continue IV antibiotics-Zosyn. Supportive measures with IV hydration. Monitor renal function. PT consult.
[2021-08-28] MEDS: carvediloL 25 MG TAB PO SCH (15:30)
[2021-08-28] MEDS: AMLODIPINE 10 MG TAB PO SCH (15:31)
[2021-08-28] MEDS: ENALAPRIL 10 MG TAB PO SCH (18:14)
[2021-08-28] MEDS: ISOSORBIDE MONO SR 60 MG TAB PO SCH (18:15)
[2021-08-28] MEDS: HYDRALAZINE HCL 20 MG/ML VIAL IV PRN (19:31)
[2021-08-28] MEDS: ATORVASTATIN 40 MG TAB PO SCH (20:37)
[2021-08-28] MEDS ORDERED: ISOSORBIDE MONONITRATE 120 MG PO SCH (21:00)
[2021-08-28] MEDS ORDERED: ENALAPRIL MALEATE 20 MG PO SCH (21:00)
[2021-08-29] MEDS: D5.45NS W/KCL 20MEQ 1,000 ML IV SCH ×3 (00:23→21:22)
[2021-08-29 06:11] LABS: Absolute Lymphocytes (CBC) 1.3 K/uL (0.7-4.9); Hematocrit 28.8 % (36.0-45.0); Lymphocytes % 9.9 % (15.3-44.8); MPV 8.1 fL (7.6-11.3); RBC Red Blood Cell Count 3.38 M/uL (3.86-4.86)
[2021-08-29] MEDS: HYDRALAZINE HCL 20 MG/ML VIAL IV PRN ×2 (06:29→10:36)
[2021-08-29 06:32] LABS: AST/SGOT 13 U/L (15-37); Albumin 1.2 g/dL (3.4-5.0); Alkaline Phosphatase 103 U/L (45-117); BUN Blood Urea Nitrogen 13 mg/dL (7-18); Bicarbonate 17 mmol/L (21-32); Bilirubin Total 0.2 mg/dL (0.2-1.0); Glucose Level 128 mg/dL (74-106); Potassium 3.8 mmol/L (3.5-5.1); Protein, Total 5.4 g/dL (6.4-8.2); Sodium Level 144 mmol/L (136-145)
[2021-08-29 06:36] LABS: ALT/SGPT < 10 U/L (12-78)
[2021-08-29] MEDS: ENALAPRIL 10 MG TAB PO SCH ×3 (09:00→21:26)
[2021-08-29] MEDS: levETIRAcetam 500 MG in NA CHLORIDE 0.9% 100 ML IV SCH ×2 (09:02→22:20)
[2021-08-29] MEDS: AMLODIPINE 10 MG TAB PO SCH (09:03)
[2021-08-29] MEDS: carvediloL 25 MG TAB PO SCH (09:03)
[2021-08-29] MEDS: ISOSORBIDE MONO SR 60 MG TAB PO SCH ×2 (09:04→21:26)
[2021-08-29] MEDS: PIPER TAZO 3.375 GM in NA CHLORIDE 0.9% 100 ML IV SCH ×2 (09:05→21:22)
--- NOTE | 2021-08-29 11:59 | P.PN ---
Subjective Date of Service: 08/29/21 Chief Complaint: AMS Patient is awake and alert. Nicardipine drip weaned off. Patient is refusing crushed oral medications. She has no new complaints. Physical Examination - Vital Signs Temperature: 97.6 F Blood Pressure: 170/57 Pulse: 92 Respirations: 22 Pulse Ox (%): 98 - Studies Microbiology Data (last 24 hrs): 08/25/21 22:58 Clean Catch Urine Edelstein Count - Final >100,000 CFU/ML. 08/25/21 22:58 Clean Catch Urine - Final Enterococcus Faecalis Assessment And Plan - Plan Physical Exam General: Awake and interactive, cachectic, Neck:Without JVD. Respiratory: Clear to auscultation bilaterally, Normal air movement Cardiovascular: Regular rate/rhythm, Normal S1 S2 Gastrointestinal: Normal bowel sounds, No tenderness Musculoskeletal: No tenderness Integumentary: No rashes Neurological: No focal motor deficit Urinary: Shi catheter Diagnosis Malignant hypertension Metabolic encephalopathy UTI Cachexia Chronic kidney disease stage III Pneumonia Plan: Seen by speech today and thin liquids recommended. Continue oral antihypertensives-Norvasc, and enalapril. Continue clonidine pa tch. Blood cultures: No growth to date. Urine culture is growing alpha Streptococcus. Continue IV antibiotics-Zosyn. Supportive measures with IV hydration. Monitor renal function. Continue PT. Transferred from ICU to the medical floor.
[2021-08-29] MEDS: ATORVASTATIN 40 MG TAB PO SCH (21:26)
[2021-08-30] MEDS: HYDRALAZINE HCL 20 MG/ML VIAL IV PRN ×4 (00:32→18:48)
[2021-08-30] MEDS: D5.45NS W/KCL 20MEQ 1,000 ML IV SCH ×2 (05:54→21:40)
[2021-08-30 06:12] LABS: Absolute Lymphocytes (CBC) 1.5 K/uL (0.7-4.9); Hematocrit 25.1 % (36.0-45.0); Lymphocytes % 13.6 % (15.3-44.8); MPV 8.5 fL (7.6-11.3); RBC Red Blood Cell Count 2.96 M/uL (3.86-4.86)
[2021-08-30 06:18] LABS: Phosphorus 1.7 mg/dL (2.5-4.9); Potassium 3.6 mmol/L (3.5-5.1)
[2021-08-30] MEDS ORDERED: POTASSIUM PHOS IN 0.9 % NACL 15 MMOL/250 ML BAG IV ONE (08:00)
[2021-08-30] MEDS: AMLODIPINE 10 MG TAB PO SCH (09:12)
[2021-08-30] MEDS: carvediloL 25 MG TAB PO SCH (09:13)
[2021-08-30] MEDS: ISOSORBIDE MONO SR 60 MG TAB PO SCH ×2 (09:15→21:41)
[2021-08-30] MEDS: ENALAPRIL 10 MG TAB PO SCH ×2 (09:16→21:40)
[2021-08-30] MEDS: PIPER TAZO 3.375 GM in NA CHLORIDE 0.9% 100 ML IV SCH ×2 (09:17→21:41)
[2021-08-30] MEDS: levETIRAcetam 500 MG in NA CHLORIDE 0.9% 100 ML IV SCH ×2 (10:02→21:43)
--- NOTE | 2021-08-30 14:02 | P.PN ---
Subjective Date of Service: 08/30/21 Chief Complaint: AMS No issues overnight Patient transferred from the ICU. Blood pressure slightly better today. Physical Examination - Vital Signs Temperature: 98.7 F Blood Pressure: 179/82 Pulse: 75 Respirations: 26 Pulse Ox (%): 95 Assessment And Plan - Plan Physical Exam General: Awake and interactive, cachectic, Neck:Without JVD. Respiratory: Clear to auscultation bilaterally, Normal air movement Cardiovascular: Regular rate/rhythm, Normal S1 S2 Gastrointestinal: Normal bowel sounds, No tenderness Musculoskeletal: No tenderness Integumentary: No rashes Neurological: No focal motor deficit Urinary: Shi catheter Diagnosis Malignant hypertension Metabolic encephalopathy UTI Cachexia Chronic kidney disease stage III Pneumonia Plan: Seen by speech today and thin liquids recommended. Continue oral antihypertensives-Norvasc, and enalapril. Continue clonidine patch. Added hydralazine for uncontrolled blood pressure. Blood cultures: No growth to date. Urine culture:alpha Streptococcus. Continue IV antibiotics-Zosyn. Patient to complete antibiotics today. Seen by neurology and started on Keppra. Monitor renal function. Continue PT.
[2021-08-30] MEDS: HYDRALAZINE HCL 25 MG TABLET PO SCH ×2 (15:11→21:41)
[2021-08-30] MEDS: ATORVASTATIN 40 MG TAB PO SCH (21:41)
[2021-08-31] MEDS: D5.45NS W/KCL 20MEQ 1,000 ML IV SCH ×3 (03:40→13:40)
[2021-08-31] MEDS: HYDRALAZINE HCL 20 MG/ML VIAL IV PRN (05:10)
[2021-08-31 05:26] LABS: Absolute Lymphocytes (CBC) 1.4 K/uL (0.7-4.9); Hematocrit 24.8 % (36.0-45.0); Lymphocytes % 15.6 % (15.3-44.8); MPV 9.1 fL (7.6-11.3)
[2021-08-31 05:36] LABS: Phosphorus 2.5 mg/dL (2.5-4.9); Potassium 3.9 mmol/L (3.5-5.1)
[2021-08-31 05:38] LABS: Magnesium 1.2 mg/dL (1.8-2.4)
[2021-08-31] MEDS ORDERED: POTASSIUM 25 MEQ EFFERV TAB PO ONE (05:49)
[2021-08-31] MEDS ORDERED: Magnesium Sulfate 2gm IVPB 2 G/50 ML BAG IV ONE (05:50)
[2021-08-31] MEDS: levETIRAcetam 500 MG in NA CHLORIDE 0.9% 100 ML IV SCH (10:03)
[2021-08-31] MEDS: PIPER TAZO 3.375 GM in NA CHLORIDE 0.9% 100 ML IV SCH (10:04)
[2021-08-31] MEDS: ISOSORBIDE MONO SR 60 MG TAB PO SCH ×2 (10:05→22:51)
[2021-08-31] MEDS: ENALAPRIL 10 MG TAB PO SCH ×2 (10:05→22:51)
[2021-08-31] MEDS: HYDRALAZINE HCL 25 MG TABLET PO SCH ×3 (10:05→22:52)
[2021-08-31] MEDS: AMLODIPINE 10 MG TAB PO SCH (10:06)
[2021-08-31] MEDS: carvediloL 25 MG TAB PO SCH (10:06)
--- NOTE | 2021-08-31 15:33 | P.PN ---
Subjective Date of Service: 08/31/21 Chief Complaint: AMS Patient states she feels better today. Blood pressure readings improved. No seizures. She is awake and alert. Physical Examination - Vital Signs Temperature: 97.0 F Blood Pressure: 159/85 Pulse: 68 Respirations: 20 Pulse Ox (%): 97 - Studies Microbiology Data (last 24 hrs): 08/26/21 01:32 Blood - Blood Aerobic Blood Culture - Final No growth in 5 days. 08/26/21 01:32 Blood - Blood Anaerobic Blood Culture - Final 08/26/21 00:45 Blood - Blood Aerobic Blood Culture - Final No growth in 5 days. 08/26/21 00:45 Blood - Blood Anaerobic Blood Culture - Final No growth in 5 days. Assessment And Plan - Plan Physical Exam General: Awake and interactive, cachectic, Neck:Without JVD. Respiratory: Clear to auscultation bilaterally, Normal air movement Cardiovascular: Regular rate/rhythm, Normal S1 S2 Gastrointestinal: Normal bowel sounds, No tenderness Musculoskeletal: No tenderness Integumentary: No rashes Neurological: No focal motor deficit Urinary: Shi catheter Diagnosis Malignant hypertension Metabolic encephalopathy UTI Severe protein calorie malnutrition-cachexia Chronic kidney disease stage III Pneumonia Plan: Seen by speech today and thin liquids recommended. Continue oral antihypertensives-Norvasc, enalapril clonidine patch and hydralazine. Titrate hydralazine. Blood cultures: No growth to date. Urine culture:alpha Streptococcus. Patient completed IV Zosyn. Change IV Keppra to oral. Monitor renal function. Continue PT. Nutritional consult.
--- NOTE | 2021-08-31 20:05 | RAD REPORT ---
EXAM DESCRIPTION: US - Renal Ultrasound-Complete - 08/31/2021 7:56 pm CLINICAL HISTORY: rios , ckd , malignant htn Flank pain COMPARISON: No comparisons FINDINGS: Increased echogenicity is seen in both kidneys. Benign bilateral renal cysts. The right kidney measures 10.0 x 6.0 x 4.8 cm. No hydronephrosis, focal mass or perinephric fluid. The left kidney measures 8.6 x 4.7 x 4.2 cm. No hydronephrosis, focal mass or perinephric fluid. Teena ral calcifications are present in the left kidney, nonspecific. The urinary bladder is incompletely distended without gross abnormality seen. IMPRESSION: Significant echogenic kidneys bilaterally compatible with medical renal disease. Benign cysts are present in both kidneys.
[2021-08-31] MEDS: ENSURE ENLIVE 237 ML CAN PO SCH (21:00)
[2021-08-31] MEDS: ATORVASTATIN 40 MG TAB PO SCH (22:51)
[2021-08-31] MEDS: levETIRAcetam 500 MG TAB PO SCH (22:52)
--- NOTE | 2021-08-31 23:54 | CON ---
Date of Consultation: 08/31/2021 Chief Complaint: Acute kidney injury, severe proteinuria. The patient was admitted for altered ment al status. History Of Present Illness: The patient is a 76-year-old woman with past medical history of hyperten ashok, coronary artery disease, COVID pneumonia, history of malnutrition. She came by EMS to the [facility] room. She was found to be unresponsive and her son called the EMS. ER workup showed potassium of 2.8, WBC 12, creatinine 1.94, magnesium 1.7. Blood pressure was severely elevated and the patien t was started on Cardene drip. The patient was found to have acute kidney injury, elevated BUN and c reatinine level, although she was nonoliguric. Further workup revealed severe proteinuria. The ainsley ent has severe hypoalbuminemia as well. She has had history of several falls in the recent past and she is unsure if she had a head trauma. According to the son, apparently the patient had a seizure a bout 15 years ago and was never evaluated about etiology of the seizure. Review of Systems: Unobtainable. The patient is lethargic, cannot provide review of systems. Past Medical History: Hypertension, chronic back pain, coronary artery disease, hyperlipidemia, shaina pheral vascular disease, anxiety, PTCA, carotid surgery, CABG, aortic bypass in the abdomen. Family History: No kidney disease in the family. Social History: Denies tobacco, alcohol, or illicit drugs. Physical Examination: General: The patient is awake, alert, follows commands, although the patient is somewhat confused an d incoherent, cannot provide review of systems. She appears cachectic. Lungs: Clear to auscultation bilaterally. Heart: S1, S2. Abdomen: Soft, benign. Extremities: Some edema present. Laboratory Data: Sodium 158, potassium 2.8, BUN 30, creatinine 1.94, glucose 201, magnesium 1.7, lip ase 107. INR 1.1, PT 12.1, WBC 12, platelet count is 377, hemoglobin 12.7. Impression And Plan: 1.Acute kidney injury, secondary to volume depletion. Creatinine level is improving. Urinalysis sh owed multiple red blood cells with severe proteinuria. The patient will be ruled out urinary tract i nfection, likely she has urinary tract infection, although proteinuria may represent monoclonal gammo aisha of unknown significance versus glomerulonephritis related proteinuria. Plan is to check urine protein electrophoresis with immunofixation. 2.Altered mental status, per primary team. 3.Hypertension. Plan is to check renal artery Doppler and renal ultrasound. 4.Hypokalemia. Monitor magnesium level. Continue treatment with potassium and magnesium, electroly te replacement. 5.Coronary artery disease. The patient does not have associated systems at this point, although she has severe coronary artery disease. Further worked by primary team. 6.Severe hypertension. The patient was on Cardene drip. Adjust medication for blood pressure contr ol. EB/MODL Voice ID: [id number] Report ID: [id number]
[2021-09-01 05:32] LABS: UR CREAT < 18.0 mg/dL (20-320); UR PROTEIN 288.5 mg/dL (<11.9)
[2021-09-01] MEDS: HYDRALAZINE HCL 20 MG/ML VIAL IV PRN (05:34)
[2021-09-01 06:33] LABS: Magnesium 1.9 mg/dL (1.8-2.4); Potassium 4.3 mmol/L (3.5-5.1)
--- NOTE | 2021-09-01 07:30 | P.PN ---
Date of Service: 09/01/21 Subjective: Sitting up in chair at bedside, feeling better Worked with physical therapy Does not want to go to SNF. He wants to go home Blood pressure improving Voided after Shi removal no new / worsening symptoms ROS: 10 point ROS as noted above, otherwise negative Physical exam GEN: Alert, orientedx3, NAD HEENT: Normal conjunctiva, sclera anicteric CV: Regular rate and rhythm, no edema Pulm: Non-labored respirations on room air ABD: Soft, nontender, nondistended Neuro: Normal speech, normal affect Problem List Malignant hypertension Metabolic encephalopathy secondary to UTI, resolved UTI Severe protein calorie malnutrition-cachexia acute on chronic seizure Chronic kidney disease stage III Hypomagnesemia, resolved improving, speech advanced diet, tolerating well Continue oral antihypertensives-Norvasc, enalapril clonidine patch and hydralazine. Nephrology consulted, assisting with HTN as well Blood cultures: No growth to date. Urine culture: enteroccoccus, s/p 5 days IV zosyn remains afebrile no further seizure activity, neuro consulted; continue PO keppra renal function improving Continue PT. Nutrition consulted Code: full dispo: home with PT likely tomorrow Time Spent Managing Pts Care (In Minutes): 35
[2021-09-01 07:33] LABS: Absolute Lymphocytes (CBC) 1.5 K/uL (0.7-4.9); Hematocrit 27.1 % (36.0-45.0); Lymphocytes % 14.4 % (15.3-44.8); MPV 9.7 fL (7.6-11.3); RBC Red Blood Cell Count 3.19 M/uL (3.86-4.86)
[2021-09-01] MEDS: carvediloL 25 MG TAB PO SCH ×2 (08:26→20:12)
[2021-09-01 08:27] LABS: Blood Morphology Comment NOTED (NOT SEEN); Platelet Estimate ADEQ; White Blood Cell Scan OK (OK)
[2021-09-01] MEDS: HYDRALAZINE HCL 25 MG TABLET PO SCH ×3 (08:27→20:11)
[2021-09-01] MEDS: ISOSORBIDE MONO SR 60 MG TAB PO SCH ×2 (08:27→20:11)
[2021-09-01] MEDS: AMLODIPINE 10 MG TAB PO SCH (08:27)
[2021-09-01 08:28] LABS: Burr Cells 1+; Ovalocytes 1+
[2021-09-01] MEDS: ENSURE ENLIVE 237 ML CAN PO SCH ×3 (08:28→20:12)
[2021-09-01] MEDS: ENALAPRIL 10 MG TAB PO SCH ×2 (08:28→20:10)
[2021-09-01] MEDS ORDERED: MAGNESIUM SULFATE 1 gm IVPB 1 GM/100 ML BAG IV ONE (14:31)
--- NOTE | 2021-09-01 18:33 | PN ---
Date of Progress Note: 09/01/2021 Subjective: The patient was admitted with seizure and acute kidney injury with altered mental status. Her acute kidney injury was mainly prerenal. Her blood pressure has been not controlled. Physical Examination: Vital Signs: Blood pressure 150/66, pulse of 76, afebrile. The patient had good urine output of 3600 mL. Chest: Clear to auscultation. Heart: S1, S2. Regular. Abdomen: Soft, nontender. Extremities: No edema. Neurologic: Alert. No focality. Laboratory Data: WBC 10.6, H and H 8.6/27.1. Sodium 138, potassium 4.3, bicarb 18, BUN 12, creatinine 1.2, GFR of 40, calcium 8.5, magnesium 1.9. Current Medications: The patient on include; 1. Amlodipine 10 mg. 2. Carvedilol 25 daily. 3. Isosorbide 120 daily. 4. Hydralazine 25 t.i.d. 5. Keppra. 6. Zofran. 7. Magnesium sulfate. Assessment And Plan: 1. Acute kidney injury secondary to poor perfusion, ATN, recovering, back to baseline. We will continue to monitor the patient. Keep holding any IV fluid. 2. Hypertension, not controlled. I am going to go ahead and increase carvedilol to 25 b.i.d. and increase hydralazine 50 t.i.d. and we will continue to monitor the patient. 3. Hypomagnesemia. We will supplement. 4. Acidosis, non-anion gap metabolic acidosis secondary to IV fluid. We will keep holding IV fluid. 5. Chronic kidney disease with acute kidney injury as above. Chronic kidney disease secondary to hypertension, recovered, back to baseline. 6. Seizure as by primary. Time spent examining the patient [id number], discussing the case with the patient and the sister by bedside, discussing the case with the steam generating powerplant mechanic including dialysis nurse from her unit and the nursing staff in the unit, discussing the case with the hospitalist and Cardiology 35 minutes. KALI Voice ID: [id number] Report ID: [id number] TANNER
[2021-09-01] MEDS: levETIRAcetam 500 MG TAB PO SCH (20:11)
[2021-09-01] MEDS: ATORVASTATIN 40 MG TAB PO SCH (20:11)
[2021-09-02] MEDS: HYDRALAZINE HCL 20 MG/ML VIAL IV PRN ×2 (04:15→12:38)
[2021-09-02 05:58] LABS: Hematocrit 24.4 % (36.0-45.0); MPV 8.8 fL (7.6-11.3); RBC Red Blood Cell Count 2.93 M/uL (3.86-4.86)
[2021-09-02 06:18] LABS: Magnesium 2.2 mg/dL (1.8-2.4); Potassium 3.7 mmol/L (3.5-5.1)
--- NOTE | 2021-09-02 06:54 | P.PN ---
Date of Service: 09/02/21 Subjective: improving BP remains elevated, denies headache / nausea appetite improving, mobility limited but improving as well ROS: 10 point ROS as noted above, otherwise negative Physical exam GEN: Alert, orientedx3, NAD HEENT: Normal conjunctiva, sclera anicteric CV: Regular rate and rhythm, no edema Pulm: Non-labored respirations on room air ABD: Soft, nontender, nondistended Neuro: Normal speech, normal affect Problem List Malignant hypertension Metabolic encephalopathy secondary to UTI, resolved UTI Severe protein calorie malnutrition-cachexia acute on chronic seizure Chronic kidney disease stage III Hypomagnesemia, resolved improving, speech advanced diet, tolerating well Continue oral antihypertensives- increasing dosage Nephrology consulted, assisting with HTN as well, resistant Blood cultures: No growth to date. Urine culture: enteroccoccus, s/p 5 days IV zosyn remains afebrile no further seizure activity, neuro consulted; continue PO keppra renal function improved Continue PT Nutrition consulted Code: full dispo: home with PT likely tomorrow, pending improvement of BP Time Spent Managing Pts Care (In Minutes): 35
--- NOTE | 2021-09-02 07:52 | RAD REPORT ---
EXAM DESCRIPTION: Jay Single View09/02/2021 5:40 am CLINICAL HISTORY: Chest pain COMPARISON: August 25, 2021 FINDINGS: Small pleural effusions are suspected with basilar atelectasis. Lungs appear clear of acute infiltration. Normal heart size. Postsurgical changes involve the chest. IMPRESSION: Small pleural effusions are suspected
[2021-09-02] MEDS: ENSURE ENLIVE 237 ML CAN PO SCH ×3 (09:00→20:59)
[2021-09-02] MEDS ORDERED: POTASSIUM 25 MEQ EFFERV TAB PO ONE (09:00)
[2021-09-02] MEDS: HYDRALAZINE HCL 25 MG TABLET PO SCH ×3 (09:10→20:58)
[2021-09-02] MEDS: carvediloL 25 MG TAB PO SCH ×2 (09:11→20:58)
[2021-09-02] MEDS: ISOSORBIDE MONO SR 60 MG TAB PO SCH ×2 (09:12→20:59)
[2021-09-02] MEDS: AMLODIPINE 10 MG TAB PO SCH (09:13)
[2021-09-02] MEDS: levETIRAcetam 500 MG TAB PO SCH ×2 (09:13→20:59)
[2021-09-02] MEDS: ENALAPRIL 10 MG TAB PO SCH ×2 (09:15→20:59)
[2021-09-02] MEDS ORDERED: CLONIDINE 0.3 MG/PATCH TD SCH (12:00)
[2021-09-02] MEDS ORDERED: POTASSIUM CL SA 10 MEQ TAB PO ONE (14:00)
--- NOTE | 2021-09-02 15:59 | PN ---
Date of Progress Note: 09/02/2021 Subjective: The patient was admitted with acute kidney injury, hypomagnesemia, acidosis. The patient's kidney function has been improved. The patient had seizure, but her blood pressure has been poorly controlled. Yesterday, we increased hydralazine. Blood pressure still elevated. Physical Examination: Vital Signs: When I saw the patient; blood pressure 190/86, pulse of 72, afebrile. Chest: Clear to auscultation. Heart: S1, S2. Regular. Systolic murmur. Abdomen: Soft, nontender. Extremity: No edema. Neurologic: Alert. No focality. Laboratory Data: WBC 8.6, H and H 8.3/24.4, platelets 244. Sodium 138, potassium 3.7, bicarb 19, BUN 15, creatinine 1.2, calcium 8.5, magnesium 2.2. Serum protein electrophoresis pending. Current Medications: The patient on include amlodipine 10 mg, carvedilol 25 b.i.d., clonidine patch 0.1 weekly, enalapril 20 b.i.d., isosorbide, Keppra, Ensure, magnesium, KCl. Assessment And Plan: 1. Acute kidney injury on chronic kidney disease, back to baseline. Off hydration. We will continue to monitor. 2. Non-anion gap metabolic acidosis secondary to renal failure, stable. 3. Hypokalemia. We will supplement. 4. Hypertension, not controlled. I am going to go ahead and discontinue amlodipine, start the patient on nifedipine and increase clonidine to 0.3 patch and we will follow up. 5. Seizure as by primary. 6. Hypomagnesemia, status post supplement. Time spent examining the patient [id number], discussing the case with the patient and the sister by bedside, discussing the case with the team assembly line machine operator including dialysis nurse from her unit and the nursing staff in the unit, discussing the case with the hospitalist and Cardiology 35 minutes. KALI Voice ID: [id number] Report ID: [id number]
[2021-09-02] MEDS: ATORVASTATIN 40 MG TAB PO SCH (20:59)
[2021-09-03] MEDS: HYDRALAZINE HCL 20 MG/ML VIAL IV PRN (05:33)
[2021-09-03 06:18] LABS: Potassium 3.8 mmol/L (3.5-5.1)
--- NOTE | 2021-09-03 06:50 | P.PN ---
Date of Service: 09/03/21 Subjective: ROS: 10 point ROS as noted above, otherwise negative Physical exam GEN: Alert, orientedx3, NAD HEENT: Normal conjunctiva, sclera anicteric CV: Regular rate and rhythm, no edema Pulm: Non-labored respirations on room air ABD: Soft, nontender, nondistended Neuro: Normal speech, normal affect Problem List Malignant hypertension Metabolic encephalopathy secondary to UTI, resolved UTI Severe protein calorie malnutrition-cachexia acute on chronic seizure Chronic kidney disease stage III Hypomagnesemia, resolved improving, speech advanced diet, tolerating well Continue oral antihypertensives- increasing dosage Nephrology consulted, assisting with HTN as well, resistant Blood cultures: No growth to date. Urine culture: enteroccoccus, s/p 5 days IV zosyn remains afebrile no further seizure activity, neuro consulted; continue PO keppra renal function improved Continue PT Nutrition consulted Code: full dispo: home with PT likely tomorrow, pending improvement of BP Time Spent Managing Pts Care (In Minutes): 35
[2021-09-03] MEDS ORDERED: NIFEDIPINE XL 60 MG TABLET PO SCH (09:00)
[2021-09-03] MEDS ORDERED: POTASSIUM CL SA 10 MEQ TAB PO ONE (09:00)
[2021-09-03] MEDS: ENSURE ENLIVE 237 ML CAN PO SCH ×2 (09:00→14:00)
[2021-09-03] MEDS: HYDRALAZINE HCL 25 MG TABLET PO SCH ×2 (09:56→14:30)
[2021-09-03] MEDS: carvediloL 25 MG TAB PO SCH (09:57)
[2021-09-03] MEDS: ENALAPRIL 10 MG TAB PO SCH (09:58)
[2021-09-03] MEDS: levETIRAcetam 500 MG TAB PO SCH (10:00)
[2021-09-03] MEDS: ISOSORBIDE MONO SR 60 MG TAB PO SCH (10:02)
[2021-09-03 10:05] VITALS: O2SAT 95
[2021-09-03] MEDS ORDERED: NIFEDIPINE XL 90 MG TABLET PO SCH (11:00)
--- NOTE | 2021-09-03 13:38 | P.DS ---
Admission Date: 08/26/21 Discharge Date: 09/03/21 Disposition: DC HOME/HOME HEALTH CARE Discharge Condition: FAIR Reason for Admission: AMS, UTI Consultations: Nephrology Neurology Procedures: Problem List Malignant hypertension Metabolic encephalopathy secondary to UTI, resolved UTI Severe protein calorie malnutrition-cachexia acute on chronic seizure Chronic kidney disease stage III Hypomagnesemia, resolved Brief History of Present Illness: 76yo F, PMH: HTN, CAD s/p CABGx4, recurrent pneumonia, malnutrition. Presented to ED via EMS after found unresponsive by her son. EMS report 2 witnessed seizures / seizure-activity and patient has been unresponsive since their arrival. Upon arrival to ED, GCS: 9, given ativan and keppra with no further seizure activity. CT head negative. SBP: 235 with mild leukocytosis and Cr: 1.9. Patient's sons were at bedside and reported patient has recurrent pneumonia and has not eaten very much over the last several months. They report she has had several falls within the past year and she signs refusal paper whenever EMS shows up at her home since "she does not like this hospital". Son reported remote seizure ~15 yrs ago, but was never further evaluated / no recurrence until now. She lives fairly independently at home and is oriented fully at baseline. Hospital Course: Patient was noted to have 2 seizures in route by EMS. She was started and continued on Keppra without any further seizure activity. CT head was negative for acute findings. She was also noted to have significantly elevated high blood pressure. Her elevated blood pressure was difficult to treat and required several days of changing and titration of antihypertensive medication. On day of discharge, she had consistent improvement and better blood pressure readings. Patient was dehydrated on admission with elevated creatinine. Nephrology was consulted, improved with IV fluid hydration. Patient was found to have UTI, urine culture grew Enterococcus. Completed 5 days of IV Zosyn. Remained afebrile and asymptomatic for several days after completion. Blood cultures were negative. Suspect UTI lowered patient's seizure threshold combination with severe hypertension and remote history of seizure. Patient is to continue on Keppra on discharge. Patient was evaluated by physical therapy and speech therapy, and had gradual improvement. On day of discharge, she was ambulating with walker with assistance. Was recommended to consider longterm facility temporarily, however p atient wanted to go home. Patient was deemed stable for discharge home, states family members will stay with her and help her as she continues to improve. director of casework services and case management were consulted, patient to be set up with home health on discharge. Anemia, of chronic disease and iron deficiency Patient was noted to be anemic, no evidence of bleeding, work-up consistent with moderatesevere iron deficiency. Patient was given 1 dose of IV iron on 09/03. She is to continue on PO iron on discharge. Follow-up with PCP within 1 week Follow-up with nephrology in 1-2 weeks Follow-up with neurology in 1-2 months. Vital Signs/Physical Exam: Temp Pulse Resp BP Pulse Ox 97.8 F 69 14 158/68 H 94 09/03/21 12:00 09/03/21 12:00 09/03/21 12:00 09/03/21 12:00 09/03/21 12:00 Physical exam GEN: Alert, orientedx3, NAD HEENT: Normal conjunctiva, sclera anicteric CV: Regular rate and rhythm, no edema Pulm: Non-labored respirations on room air ABD: Soft, nontender, nondistended Neuro: Normal speech, normal affect Laboratory Data at Discharge: WBC 8.6 K/uL (4.3-10.9) D 09/02/21 05:28 Hgb 8.3 g/dL (12.0-15.0) L 09/02/21 05:28 Hct 24.4 % (36.0-45.0) L 09/02/21 05:28 Plt Count 244 K/uL (152-406) 09/02/21 05:28 PT 12.1 SECONDS (9.5-12.5) 08/25/21 22:22 INR 1.10 08/25/21 22:22 Sodium 139 mmol/L (136-145) 09/03/21 05:23 Potassium 3.8 mmol/L (3.5-5.1) 09/03/21 05:23 BUN 14 mg/dL (7-18) 09/03/21 05:23 Creatinine 1.31 mg/dL (0.55-1.3) H 09/03/21 05:23 Glucose 107 mg/dL (74-106) H 09/03/21 05:23 Phosphorus 2.5 mg/dL (2.5-4.9) 08/31/21 05:01 Magnesium 2.2 mg/dL (1.8-2.4) 09/02/21 05:28 Total Bilirubin 0.2 mg/dL (0.2-1.0) 08/29/21 06:02 AST 13 U/L (15-37) L 08/29/21 06:02 ALT < 10 U/L (12-78) L 08/29/21 06:02 Alkaline Phosphatase 103 U/L (45-117) 08/29/21 06:02 Triglycerides 170 mg/dL (<150) H 08/26/21 01:32 Cholesterol 191 mg/dL (<200) 08/26/21 01:32 HDL Cholesterol 28 mg/dL (40-60) L 08/26/21 01:32 Cholesterol/HDL Ratio 6.82 08/26/21 01:32 Lipase 107 U/L (73-393) 08/26/21 00:04 Home Medications: Clopidogrel Bisulfate [Clopidogrel] 75 mg PO DAILY 12/16/13 Enalapril Maleate [Vasotec] 20 mg PO BID 12/16/13 Isosorbide Mononitrate [Isosorbide Mononitrate ER] 1 tab PO BID 12/16/13 Solifenacin [Vesicare*] 10 mg PO DAILY 12/16/13 carvediloL [Coreg*] 25 mg PO DAILY 12/16/13 Atorvastatin Calcium [Lipitor] 40 mg PO BEDTIME 08/26/21 Furosemide [Lasix] 20 mg PO DAILY PRN 08/26/21 Hydrocodone Bit/Acetaminophen [Hydrocodon-Acetaminoph 2.5-325] 7.5 mg PO BID PRN 08/26/21 Nitroglycerin 0.4 mg SL 1X PRN 08/26/21 Clonidine Patch [Catapres-Tts 3*] 0.3 mg TD EVERY 7TH DAY 30 Days #4 patch.tdwk 09/03/21 Ferrous Sulfate [Iron] 325 mg PO DAILY 30 Days #30 tablet 09/03/21 Hydralazine HCl [Apresoline] 50 mg PO TID 30 Days #90 tablet 09/03/21 NIFEdipine [Nifedipine ER] 90 mg PO DAILY 30 Days #30 tab.er.24 09/03/21 Spironolactone [Aldactone*] 25 mg PO DAILY 30 Days #30 tab 09/03/21 levETIRAcetam [Keppra*] 500 mg PO BID 30 Days #60 tab 09/03/21 New Medications: Spironolactone [Aldactone*] 25 mg PO DAILY 30 Days #30 tab Hydralazine HCl [Apresoline] 50 mg PO TID 30 Days #90 tablet Clonidine Patch [Catapres-Tts 3*] 0.3 mg TD EVERY 7TH DAY 30 Days #4 patch.tdwk Ferrous Sulfate [Iron] 325 mg PO DAILY 30 Days #30 tablet levETIRAcetam [Keppra*] 500 mg PO BID 30 Days #60 tab NIFEdipine [Nifedipine ER] 90 mg PO DAILY 30 Days #30 tab.er.24 Diet: Regular Activity: Fall precautions Followup: Jay De MD [ACTIVE - CAN ADMIT] - 1-2 Weeks (insurance claim auditor- call to schedule an appointment) Isma George MD [ASSOCIATE-ACTIVE - CAN ADMIT] - (neurologist- follow up in 1-2 months, call to schedule an appointment ) Unknown,U [Primary Care Provider] - Time spent managing pt's care (in minutes): 45
[2021-09-03 15:18] VITALS: BP 189/79; TEMP 97.5
--- NOTE | 2021-09-03 15:27 | PN ---
Date of Progress Note: 09/03/2021 Subjective: The patient was admitted with seizure. Blood pressure has been no not controlled. Yest erday, we increased her hydralazine and clonidine, switched her to nifedipine. Blood pressure today slightly better down to the 170. Physical Examination: Vital Signs: Blood pressure 177/77, pulse of 70, afebrile. Chest: Clear to auscultation. Heart: S1, S2. Regular. Abdomen: Soft, nontender. Extremities: No edema. Neurologic: Alert. No focality. Current Medications: The patient on atorvastatin, carvedilol 25 b.i.d., clonidine 0.3 weekly, enalap ril 20 b.i.d., hydralazine 50 t.i.d., isosorbide 120 b.i.d., nifedipine 60, Tylenol, Keppra, Ensure. Assessment And Plan: 1.Acute kidney injury secondary to prerenal, continued to recover, plateaued currently. We will con tinue to monitor off IV fluid. 2.Non-anion gap metabolic acidosis secondary to fluid resuscitation. No need for bicarb drip curren tly. 3.Hypokalemia. We will supplement. 4.Hypomagnesemia, status post supplement. 5.Anemia with the presence of acute kidney injury and nephrotic range proteinuria. We will follow u p serum protein electrophoresis. I am going to go ahead and send for iron study too. 6.Hypertension, not controlled. We will increase nifedipine to 90 mg and we will follow up. 7.Hypokalemia with the presence of hypertension. I am going to start the patient on gentle dose of spironolactone and we will send for aldosterone and plasma renin. SISSY/BHAVESH Voice ID: [id number] Report ID: [id number]
[2021-09-04 03:48] LABS: Albumin, (SPE) 1.4 g/dL (3.8-4.8); Alpha-1-Globulins 0.3 g/dL (0.2-0.3); Gamma Globulins 0.8 g/dL (0.8-1.7); INTERPRETATION REPORT
[2021-09-04] MEDS ORDERED: SPIRONOLACTONE 25 MG TABLET PO SCH (09:00)
[2021-09-14 08:56] LABS: KAPPA LC FREE UR 15.30 (H) mg/dL
== END 2021-09-03 16:28 | disposition home health service (06) | DRG 100 ==
LOC: ER 22:04 → ERHOLD 08-26 01:35 → 3RD-ICU 08-26 02:56 → 2ND 08-29 17:05
PROVIDERS: ADMIT Internal Medicine; ATTEND Internal Medicine
DX: R56.9 Unspecified convulsions (principal); G93.41 Metabolic encephalopathy; N17.0 Acute kidney failure with tubular necrosis; E43 Unspecified severe protein-calorie malnutrition; J18.9 Pneumonia, unspecified organism; N39.0 Urinary tract infection, site not specified; Z68.1 Body mass index [BMI] 19.9 or less, adult; R64 Cachexia; E87.2 Acidosis; I16.0 Hypertensive urgency; B95.2 Enterococcus as the cause of diseases classified elsewhere; E86.0 Dehydration; D50.9 Iron deficiency anemia, unspecified; I12.9 Hypertensive chronic kidney disease with stage 1 through stage 4 chronic kidney disease, or unspecified chronic kidney disease; N18.30 Chronic kidney disease, stage 3 unspecified; I25.10 Atherosclerotic heart disease of native coronary artery without angina pectoris; E87.6 Hypokalemia; E88.09 Other disorders of plasma-protein metabolism, not elsewhere classified; I73.9 Peripheral vascular disease, unspecified; E83.42 Hypomagnesemia; D63.8 Anemia in other chronic diseases classified elsewhere; Z95.1 Presence of aortocoronary bypass graft; Z86.16 Personal history of COVID-19; Z95.5 Presence of coronary angioplasty implant and graft; Z20.822 Contact with and (suspected) exposure to COVID-19
CPT/HCPCS: 36415; 51702; 70450; 71045; 76770; 80048; 80053; 80061; 80076; 81003; 81015; 82088; 82435; 82533; 82570; 82805; 83520; 83605; 83690; 83735; 83880; 83883; 84100; 84132; 84156; 84165; 84300; 84439; 84443; 84484; 85025; 85027; 85610; 86334; 86335; 87040; 87077; 87086; 87088; 87186; 92610; 93005; 93306; 94010; 95819; 97112; 97116; 97161; 97530; 99285; J0360; J1953; J2543; J3475; J3480; J7040; J7050; U0003

== ENCOUNTER 2022-01-22 13:47 | Inpatient (IN) | payer OTHER ==
[2022-01-22] MEDS ORDERED: NA CHLORIDE 0.9% 1,000 ML ONE ×2 (14:10→16:20)
[2022-01-22 14:45] LABS: Absolute Lymphocytes (CBC) 1.1 K/uL (0.7-4.9); Hematocrit 25.6 % (36.0-45.0); MCV 96.3 fL (80-100); MPV 9.4 fL (7.6-11.3); RBC Red Blood Cell Count 2.66 M/uL (3.86-4.86)
[2022-01-22 15:37] LABS: SARS-CoV-2 Antigen Rapid Res Negative (Negative)
[2022-01-22] MEDS ORDERED: MORPHINE 2 MG/ML SYR ONE ×2 (15:43→18:02)
[2022-01-22] MEDS ORDERED: ONDANSETRON 4 MG/2 ML VIAL ONE (15:43)
--- NOTE | 2022-01-22 15:50 | RAD REPORT ---
EXAM DESCRIPTION: CT - Head C Spine Cap Wo Con - 01/22/2022 3:26 pm CLINICAL HISTORY: Trauma, head and neck injury. Chest, abdomen and pelvis pain. unwitnessed fall, AMS, right buttock ulcer COMPARISON: Head Brain Wo Cont dated 08/25/2021 TECHNIQUE: CT head without contrast. CT cervical spine without contrast with coronal and sagittal reformatted images. CT chest, abdomen and pelvis without contrast with coronal and sagittal reformatted images of the spi ne. All CT scans are performed using dose optimization technique as appropriate and may include automated exposure control or mA/KV adjustment according to patient size. FINDINGS: CT HEAD WITHOUT CONTRAST: No intracranial hemorrhage, hydrocephalus or extra-axial fluid collection. Areas of gliosis are seen in the left cerebral hemisphere likely related to previous infarct or trauma. Mild generalized brain atrophy is present with mild periventricular and deep white matter chronic microvascular ischemic ch anges. The paranasal sinuses and mastoids are clear. The calvarium is intact. Left vertebral artery is ather osclerotic. CT CERVICAL SPINE WITHOUT CONTRAST: No fracture or subluxation. Prominent degenerative change lower cervical spine. 3 mm degenerative ant erolisthesis of C4 on 5. Disc thinning with prominent posterior osteophyte C5-6. The prevertebral sof t tissues are normal in thickness.Right carotid stent. CT CHEST, ABDOMEN, PELVIS WITHOUT CONTRAST: NOTE: Lack of contrast is a significant limitation in the assessment of trauma related findings. Spec ifically, solid organ, vascular and bowel evaluation is significantly limited. Mild atelectasis is present in the left lung base. The lungs are mildly emphysematous.Small left pleu ral effusion noted. Aortic atherosclerosis. Previous aortic bypass graft likely present. Full evaluat ion is not possible due to lack of contrast material. No evidence of intra-abdominal visceral injury, free fluid or free air is seen within the above detai led limitations. Air is noted in the urinary bladder. Soft tissue ulceration is seen lower back no with subtle irregul arity of the coccyx likely indicating early osteomyelitis. Moderate lumbar degenerative changes. No acute fracture evident. IMPRESSION: Early findings of osteomyelitis suspected in the sacrococcygeal region deep to a promine nt ulceration. Air in the urinary bladder is noted could be related infection or recent instrumentation. Small left pleural effusion.
--- NOTE | 2022-01-22 16:01 | RAD REPORT ---
EXAM DESCRIPTION: RAD - Femur Right - 01/22/2022 3:52 pm CLINICAL HISTORY: PAIN COMPARISON: No comparisons FINDINGS: Diffuse osteopenia. No acute fracture or dislocation. Heavy atherosclerosis.
--- NOTE | 2022-01-22 16:09 | EDPHYS ---
Physician Documentation [facility] Name: Clemencia Bryant Age: 76 yrs Sex: Female : 1945 Arrival Date: 01/22/2022 Time: 13:53 Bed 18 Private MD: OWEN Physician Sundeep Skinner HPI: 01/22 14:31 This 76 yrs old Female presents to ER via EMS with complaints of right hip pain. rn 14:31 The patient or guardian reports pain. that occurred at an unknown site, sustained from rn unknown reason, There is no obvious deformity. The complaints affect the buttocks. Onset: The symptoms/episode began/occurred at an unknown time. Modifying factors: The symptoms are alleviated by nothing, the symptoms are aggravated by any movement. Severity of symptoms: At their worst the symptoms were mild, in the emergency department the symptoms are unchanged. The patient has not experienced similar symptoms in the past. The patient has been recently seen by a physician:. EMS reports called out for hip/buttocks pain, possible fall, found on ground, also has deep ulcer to right buttocks. . Historical: - Allergies: 13:57 Codeine; mb8 - Social history:: Smoking status: unknown. - Family history:: not pertinent. - Hospitalizations: : No recent hospitalization is reported. ROS: 14:31 Constitutional: Negative for fever, chills, and weight loss, Eyes: Negative for injury, rn pain, redness, and discharge, Neck: Negative for injury, pain, and swelling, Cardiovascular: Negative for chest pain, palpitations, and edema, Respiratory: Negative for shortness of breath, cough, wheezing, and pleuritic chest pain, Abdomen/GI: Negative for abdominal pain, nausea, vomiting, diarrhea, and constipation, Back: Negative for injury and pain, MS/Extremity: + right buttock and hip pain Skin: Negative for injury, rash, and discoloration, Neuro: Negative for headache, weakness, numbness, tingling, and seizure. Exam: 14:31 Constitutional: Thin cachectic female, in position Head/Face: Normocephalic, rn atraumatic. Eyes: Sunken eyes ENT: dry MM Cardiovascular: Regular rate and rhythm. No pulse deficits. Respiratory: No increased work of breathing, no retractions or nasal flaring. Abdomen/GI: Soft, non-tender Skin: +5 cm ulceration right buttocks with blure/green discharge MS/ Extremity: Pulses equal, no cyanosis. Neurovascular intact. Full passive ROM without apparent pain of either leg Neuro: Awake and alert, GCS 15 Vital Signs: 13:55 BP 146 / 55; Pulse 92; Resp 14; Temp 97.6(O); Pulse Ox 97% ; Weight 42.5 kg; Pain 5/10; mb8 15:24 BP 153 / 54; Pulse 98; Resp 16; Pulse Ox 98% ; Pain 8/10; mb8 18:03 BP 123 / 53; Pulse 80; Resp 22; Temp 98.7(T); Pulse Ox 98% ; Pain 9/10; mb8 18:50 BP 138 / 46; Pulse 97; Resp 14; Pulse Ox 99% ; Pain 6/10; mb8 MDM: 13:54 Patient medically screened. rn 16:05 Differential diagnosis: hip fracture, bursitis, strain, cellulitis, cellulitis, rn osteomyelitis, sepsis, severe sepsis. Data reviewed: vital signs, nurses notes, lab test result(s), radiologic studies, CT scan, and as a result, I will admit patient. Counseling: I had a detailed discussion with the patient and/or guardian regarding: the historical points, exam findings, and any diagnostic results supporting the discharge/admit diagnosis, lab results, radiology results, the need for further work-up and treatment in the hospital. Response to treatment: the patient's symptoms have mildly improved after treatment, and as a result, I will admit patient. Admission orders: after a detailed discussion of the patient's condition and case, the admit orders are written by me. ED course: Pt meets criteria for severe sepsis. Source (A) osteomyelitis and wound infection; SIRS (B) tachycardia and elevated WBC; (C) organ dysfunction is Creatinine > 2. Normal lactate and no evidence of shock at this time. . 01/22 13:56 Order name: Basic Metabolic Panel; Complete Time: 15:56 rn 01/22 13:56 Order name: CBC with Diff; Complete Time: 22:04 rn 01/22 13:56 Order name: Protime (+inr); Complete Time: 15:56 rn 01/22 13:56 Order name: Ptt, Activated; Complete Time: 15:56 rn 01/22 13:56 Order name: Wound Culture rn 01/22 13:56 Order name: Blood Culture Adult (2) rn 01/22 13:56 Order name: Lactate; Complete Time: 15:56 rn 01/22 13:56 Order name: SARS RAPID; Complete Time: 15:56 rn 01/22 19:44 Order name: LFT's; Complete Time: 22:04 nv1 01/22 19:44 Order name: BNP; Complete Time: 22:04 la1 01/22 19:44 Order name: Troponin High Sensitivity; Complete Time: 22:04 la1 01/22 19:57 Order name: Urine Microscopic Only; Complete Time: 22:04 la1 01/22 21:07 Order name: Manual Differential; Complete Time: 22:04 EDMS 01/22 23:11 Order name: Troponin High Sensitivity; Complete Time: 23:40 EDMS 01/22 13:56 Order name: Labs collected and sent; Complete Time: 14:37 rn 01/22 13:56 Order name: XRAY Femur RIGHT; Complete Time: 16:04 rn 01/22 15:19 Order name: Head C Spine Cap Wo Con; Complete Time: 15:56 EDMS 01/22 20:23 Order name: Shi; Complete Time: 21:22 leonidas Administered Medications: 14:21 Drug: NS 0.9% 1000 ml Route: IV; Rate: 1000 ml; Site: left antecubital; mb8 15:41 Follow up: Response: No adverse reaction; IV Status: Completed infusion mb8 15:42 Drug: morphine 2 mg Route: IVP; Infused Over: 4 mins; Site: left antecubital; mb8 16:52 Follow up: Response: No adverse reaction; Pain is decreased mb8 15:43 Drug: Zofran (Ondansetron) 4 mg Route: IVP; Site: left antecubital; mb8 16:52 Follow up: Response: No adverse reaction; Marked relief of symptoms mb8 16:22 Drug: NS 0.9% 1000 ml Route: IV; Rate: 1000 ml; Site: right antecubital; mb8 17:55 Follow up: Response: No adverse reaction; IV Status: Completed infusion mb8 16:23 Drug: Zosyn (piperacillin-tazobactam) 3.375 grams Route: IVPB; Infused Over: 60 mins; mb8 Site: left antecubital; 16:49 Follow up: Response: No adverse reaction; IV Status: Completed infusion mb8 16:51 Drug: vancoMYCIN 1 grams Route: IVPB; Infused Over: 2 hrs; Site: left antecubital; mb8 17:55 Follow up: Response: No adverse reaction; IV Status: Completed infusion mb8 17:57 Drug: morphine 2 mg Route: IVP; Infused Over: 4 mins; Site: left antecubital; mb8 18:04 Follow up: Response: No adverse reaction; Pain is decreased mb8 20:40 Drug: NS 0.9% 500 ml Route: IV; Rate: bolus; Site: right forearm; ja4 Disposition Summary: 01/22/22 16:08 Hospitalization Ordered Hospitalization Status: Inpatient Admission rn Condition: Stable rn Problem: new rn Symptoms: have improved rn Bed/Room Type: Standard rn Provider: Claude Mills(01/22/22 23:40) vijaya Location: Telemetry/MedSurg (Inpatient)(01/23/22 02:22) cg Room Assignment: [facility](01/23/22 02:25) cg Diagnosis - Severe sepsis without septic shock rn - Osteomyelitis, unspecified rn - Acidosis rn - Acute kidney failure, unspecified rn Forms: - Medication Reconciliation Form rn - SBAR form rn Signatures: Dispatcher [employer] EDSundeep Moran MD MD cha Nieto, Roman, MD MD rn Narayan Abad, [employer]-C [employer] INS[employer]-Cla1 Ashley Cedillo RN RN cg Allen, Jeremy, RN RN ja4 Tyler Winslow RN RN mb8 Corrections: (The following items were deleted from the chart) 15:19 14:01 Head C Spine CAP W Con+CT.RAD.BRZ ordered. EDMS EDMS 23:40 16:08 Dominick Gamez rn la1 01/23 00:11 01/22 16:08 Telemetry/MedSurg (Inpatient) rn cg 01/23 00:11 01/22 16:08 rn cg 01/23 02:22 00:11 [facility] ER HOLD cg cg 02:22 00:11 ERHOLD- cg cg 02:25 02:22 cg cg
--- NOTE | 2022-01-22 16:09 | ER ---
Nurse's Notes [facility] Name: Clemencia Bryant Age: 76 yrs Sex: Female : 1945 Arrival Date: 01/22/2022 Time: 13:53 Bed 18 Private MD: Diagnosis: Severe sepsis without septic shock;Osteomyelitis, unspecified;Acidosis;Acute kidney failure, unspecified Presentation: 01/22 13:55 Chief complaint: Patient states: right hip pain after a fall yesterday, has open wound mb8 to right buttocks. Coronavirus screen: At this time, the client does not indicate any symptoms associated with coronavirus-19. Ebola Screen: Patient negative for fever greater than or equal to 101.5 degrees Fahrenheit, and additional compatible Ebola Virus Disease symptoms Patient denies exposure to infectious person. Patient denies travel to an Ebola-affected area in the 21 days before illness onset. No symptoms or risks identified at this time. Initial Sepsis Screen: Does the patient meet any 2 criteria? No. Patient's initial sepsis screen is negative. Does the patient have a suspected source of infection? Yes: Skin breakdown/wound. Risk Assessment: Do you want to hurt yourself or someone else? Patient reports no desire to harm self or others. Onset of symptoms is unknown. 13:55 Method Of Arrival: EMS mb8 13:55 Acuity: [place] 3 mb8 Triage Assessment: 13:57 General: Appears uncomfortable, Behavior is calm, cooperative, appropriate for age. mb8 Pain: Complains of pain in right buttocks Pain does not radiate. Pain currently is 5 out of 10 on a pain scale. Quality of pain is described as aching. Derm: Wound noted buttocks. Historical: - Allergies: 13:57 Codeine; mb8 - Social history:: Smoking status: unknown. - Family history:: not pertinent. - Hospitalizations: : No recent hospitalization is reported. Screenin:58 Abuse screen: Denies threats or abuse. Denies injuries from another. Nutritional mb8 screening: No deficits noted. Tuberculosis screening: No symptoms or risk factors identified. Fall Risk Fall in past 12 months (25 points). Secondary diagnosis (15 points) No IV (0 pts). Ambulatory Aid- None/Bed Rest/Nurse Assist (0 pts). Gait- Impaired (20 pts.). Mental Status- Overestimates/Forgets Limitations (15 pts.). Total Madrid Fall Scale indicates High Risk Score (45 or more points). Fall prevention measures have been instituted. Side Rails Up X 2 Family Present and informed to notify staff if the need to leave the bedside As available patient and family educated on Fall Prevention Program and Strategies. Assessment: 13:58 Derm: Wound noted buttocks. mb8 18:50 Reassessment: Patient and/or family updated on plan of care and expected duration. Pain mb8 level reassessed. Patient is alert, oriented x 3, equal unlabored respirations, skin warm/dry/pink. Patient states feeling better. 01/23 02:46 Reassessment: report called to mena santos. ja4 Vital Signs: 01/22 13:55 BP 146 / 55; Pulse 92; Resp 14; Temp 97.6(O); Pulse Ox 97% ; Weight 42.5 kg; Pain 5/10; mb8 15:24 BP 153 / 54; Pulse 98; Resp 16; Pulse Ox 98% ; Pain 8/10; mb8 18:03 BP 123 / 53; Pulse 80; Resp 22; Temp 98.7(T); Pulse Ox 98% ; Pain 9/10; mb8 18:50 BP 138 / 46; Pulse 97; Resp 14; Pulse Ox 99% ; Pain 6/10; mb8 ED Course: 13:53 Patient arrived in ED. eb 13:54 Sina Mills MD is Attending Physician. rn 13:55 Tyler Winslow, RN is Primary Nurse. mb8 13:57 Triage completed. mb8 13:58 Arm band placed on left wrist. mb8 13:59 Patient has correct armband on for positive identification. mb8 13:59 No provider procedures requiring assistance completed. mb8 14:10 First set of blood cultures drawn by me. mb8 14:16 Initial lab(s) drawn, by ak, sent to lab. COVID swab sent to lab. Wound culture swab mb8 sent to lab. Inserted saline lock: 18 gauge in left antecubital area, using aseptic technique. Blood collected. 14:23 Basic Metabolic Panel Sent. mb8 14:23 CBC with Diff Sent. mb8 14:23 Ptt, Activated Sent. mb8 14:23 Protime (+inr) Sent. mb8 14:23 Blood Culture Adult (2) Sent. mb8 14:23 Lactate Sent. mb8 14:23 SARS RAPID Sent. mb8 14:36 Wound Culture Sent. mb8 15:28 Head C Spine Cap Wo Con In Process Unspecified. EDMS 15:54 XRAY Femur RIGHT In Process Unspecified. EDMS 16:07 Dominick Gamez MD is Hospitalizing Provider. rn 20:00 IV with fluids not infusing freely, without good blood return, . IV discontinued. ja4 20:10 Inserted saline lock: 20 gauge in right forearm, using aseptic technique. Blood ja4 collected. 20:16 Troponin High Sensitivity Sent. ja4 20:16 BNP Sent. ja4 20:16 LFT's Sent. ja4 20:23 Attending Physician role handed off by Sina Mills MD leonidas 20:23 Sundeep Skinner MD is Attending Physician. leonidas 20:35 Shi cath inserted, using sterile technique, 16 Fr., by ak, balloon inflated, to ja4 gravity drainage, urine specimen collected. 20:40 Urine Microscopic Only Sent. ja4 23:40 Claude Mills MD is Hospitalizing Provider. la1 01/23 01:57 Primary Nurse role handed off by Tyler Winslow RN wm Administered Medications: 01/22 14:21 Drug: NS 0.9% 1000 ml Route: IV; Rate: 1000 ml; Site: left antecubital; mb8 15:41 Follow up: Response: No adverse reaction; IV Status: Completed infusion mb8 15:42 Drug: morphine 2 mg Route: IVP; Infused Over: 4 mins; Site: left antecubital; mb8 16:52 Follow up: Response: No adverse reaction; Pain is decreased mb8 15:43 Drug: Zofran (Ondansetron) 4 mg Route: IVP; Site: left antecubital; mb8 16:52 Follow up: Response: No adverse reaction; Marked relief of symptoms mb8 16:22 Drug: NS 0.9% 1000 ml Route: IV; Rate: 1000 ml; Site: right antecubital; mb8 17:55 Follow up: Response: No adverse reaction; IV Status: Completed infusion mb8 16:23 Drug: Zosyn (piperacillin-tazobactam) 3.375 grams Route: IVPB; Infused Over: 60 mins; mb8 Site: left antecubital; 16:49 Follow up: Response: No adverse reaction; IV Status: Completed infusion mb8 16:51 Drug: vancoMYCIN 1 grams Route: IVPB; Infused Over: 2 hrs; Site: left antecubital; mb8 17:55 Follow up: Response: No adverse reaction; IV Status: Completed infusion mb8 17:57 Drug: morphine 2 mg Route: IVP; Infused Over: 4 mins; Site: left antecubital; mb8 18:04 Follow up: Response: No adverse reaction; Pain is decreased mb8 20:40 Drug: NS 0.9% 500 ml Route: IV; Rate: bolus; Site: right forearm; ja4 Medication: 13:58 VIS not applicable for this client. mb8 Outcome: 16:08 Decision to Hospitalize by Provider. danielle 01/23 03:24 Patient left the ED. jaChantelle Signatures: Dispatcher [employer] EDSundeep Moran MD MD cha Nieto, Roman, MD MD rn Narayan Abad, [employer] W[employer] WE[employer]ER-C [employer] WIRE WE[employer]-[facility] Tri Araya Wendy wm Allen, Jeremy, RN RN jaTyler Foreman RN RN mb8
[2022-01-22] MEDS ORDERED: NA CHLORIDE 0.9% 100 ML ONE ×2 (16:20→22:34)
[2022-01-22] MEDS ORDERED: VANCOMYCIN 1 GM/VIAL ONE ×2 (16:20→22:34)
[2022-01-22] MEDS ORDERED: PIPERACIL/TAZO 3.375 GM VIAL IV ONE (16:20)
[2022-01-22] MEDS ORDERED: NA CHLORIDE 0.9% 250 ML ONE ×2 (16:20→22:34)
[2022-01-22] MEDS ORDERED: NA CHLORIDE 0.9% 500 ML ONE (20:29)
[2022-01-22 20:47] LABS: ALT/SGPT 40 U/L (12-78); AST/SGOT 53 U/L (15-37); Albumin 1.2 g/dL (3.4-5.0); Alkaline Phosphatase 96 U/L (45-117); Bilirubin Total 0.2 mg/dL (0.2-1.0); NT PRO-BNP 21698 pg/mL (<450); Protein, Total 4.6 g/dL (6.4-8.2)
[2022-01-22 20:59] LABS: Urine Bacteria Loaded /HPF (<20)
[2022-01-22 21:04] LABS: Bilirubin Direct < 0.1 mg/dL (0-0.2)
[2022-01-22 21:06] LABS: Blood Morphology Comment NOT SEEN (NOT SEEN); Platelet Estimate ADEQ
[2022-01-22 21:08] LABS: Troponin High Sensitivity 1683.3 pg/mL (<58.9)
[2022-01-22] MEDS ORDERED: ONDANSETRON 4 MG/2 ML VIAL IV PRN (21:52)
[2022-01-22] MEDS ORDERED: VANCOMYCIN 1 GM in NA CHLORIDE 0.9% 250 ML IVPB SCH (21:52)
[2022-01-22] MEDS: D5W 1,000 ML with NA BICARB 8.4% 75 MEQ IV SCH ×2 (21:52)
[2022-01-22] MEDS: CEFEPIME 1 GM in NA CHLORIDE 0.9% 100 ML IV SCH (22:00)
--- NOTE | 2022-01-22 22:13 | P.HP ---
Certification for Inpatient Patient admitted to: Inpatient With expected LOS: >2 Midnights Patient will require the following post-hospital care: None Practitioner: I am a practitioner with admitting privileges, knowledge of patient current condition, hospital course, and medical plan of care. Services: Services provided to patient in accordance with Admission requirements found in Title 42 Section 412.3 of the Code of Federal Regulations Patient History Date of Service: 01/22/22 Reason for admission: Severe sepsis, UTI, sacral osteomyelitis History of Present Illness: 76-year-old female with history of malnutrition, hypertension, seizures, CKD 3, sacral wound presents the emergency department for right hip pain after a fall and open sacral wound. Patient appears confused/disoriented she met SIRS criteria for heart rate greater than 90, respiratory rate greater than 20, white blood cell count 22 with source of infection suspected sacral wound patient had CT of the chest abdomen pelvis without contrast which showed early findings osteomyelitis suspected in the sacrococcygeal region deep to the prominent ulceration, air in the urinary bladder noted could be related to infection or recent instrumentation, small left pleural effusion. Patient met criteria for severe sepsis given acute renal failure which is also present. No septic shock as lactic acid is 0.6 and there is no hypotension at this time. Additional labs are ordered revealing elevated troponin, elevated BNP albumin of 1.2 and a urine microscopic with loaded bacteria, greater than 50 white cells. Patient was treated with broad-spectrum antibiotics vancomycin/cefepime. Going to admit for further evaluation and management of severe sepsis secondary to sacral osteomy elitis/UTI, acute renal failure. Allergies codeine Allergy (Verified 12/16/13 20:28) Shortness of breath Home Medications: Clopidogrel Bisulfate [Clopidogrel] 75 mg PO DAILY 12/16/13 Enalapril Maleate [Vasotec] 20 mg PO DAILY 12/16/13 Isosorbide Mononitrate [Isosorbide Mononitrate ER] 1 tab PO BID 12/16/13 Solifenacin [Vesicare*] 10 mg PO DAILY 12/16/13 carvediloL [Coreg*] 25 mg PO DAILY 12/16/13 Atorvastatin Calcium [Lipitor] 40 mg PO BEDTIME 08/26/21 Furosemide [Lasix] 20 mg PO DAILY PRN 08/26/21 Hydrocodone Bit/Acetaminophen [Hydrocodon-Acetaminoph 2.5-325] 7.5 mg PO BID PRN 08/26/21 Nitroglycerin 0.4 mg SL 1X PRN 08/26/21 Clonidine Patch [Catapres-Tts 3*] 0.3 mg TD EVERY 7TH DAY 30 Days #4 patch.tdwk 09/03/21 Ferrous Sulfate [Iron] 325 mg PO DAILY 30 Days #30 tablet 09/03/21 Hydralazine HCl [Apresoline] 50 mg PO TID 30 Days #90 tablet 09/03/21 NIFEdipine [Nifedipine ER] 90 mg PO DAILY 30 Days #30 tab.er.24 09/03/21 Spironolactone [Aldactone*] 25 mg PO DAILY 30 Days #30 tab 09/03/21 levETIRAcetam [Keppra*] 500 mg PO BID 30 Days #60 tab 09/03/21 Aspirin [Aspirin EC 81 MG] 81 mg PO DAILY 11/25/21 Gabapentin [Neurontin] 300 mg PO DAILY 11/25/21 Solifenacin Succinate 10 mg PO DAILY 11/25/21 cilostazoL [Cilostazol] 100 mg PO BID 11/25/21 - Past Medical/Surgical History Diabetic: No -: HTN -: Chronic Back pain -: CAD, [facility] -: Hyperlipidemia -: PVD -: Anxiety -: 3 heart stents -: carotid surger -: quadruple bypass -: vein striping -: Aortic bypass in abdomen -: pvd -: htn -: hyperlipidemia Psychosocial/ Personal History: , Children-4, lives with daughter - Social History Alcohol use: No CD- Drugs: No Caffeine use: Yes Place of Residence: Home Review of Systems Confused Physical Examination - Physical Exam General: Alert, In no apparent distress, Oriented x1 HEENT: Atraumatic, PERRLA, Other (Mucous membranes dry), EOMI, Sclerae nonicte kumar Neck: Supple, 2+ carotid pulse no bruit, No LAD, Without JVD or thyroid abnormality Respiratory: Clear to auscultation bilaterally, Normal air movement Cardiovascular: Regular rate/rhythm, Normal S1 S2 Capillary refill: <2 Seconds Gastrointestinal: Normal bowel sounds, No tenderness Musculoskeletal: No tenderness Integumentary: Pressure ulcer (Unstageable sacral wound noted) Neurological: Normal gait, Normal speech, Normal strength at 5/5 x4 extr, Normal tone, Normal affect - Studies Laboratory Data (last 24 hrs) 01/22/22 14:16: PT 11.0, INR 1.00, APTT 28.1 01/22/22 14:16: WBC 22.10 H*, Hgb 7.9 L, Hct 25.6 L, Plt Count 271 01/22/22 14:16: Sodium 146 H, Potassium 4.0, BUN 92 H, Creatinine 2.67 H, G lucose 78 Assessment and Plan - Plan Assessment: Severe sepsis secondary to suspected sacral osteomyelitis/sacral pressure ulcer, urinary tract infection Toxic metabolic encephalopathy related to sepsis/osteomyelitis/UTI Acute renal failure secondary to severe sepsis NSTEMI Hypertension Plan: Severe sepsis secondary to suspected sacral osteomyelitis/sacral pressure ulcer, urinary tract infection: Patient is criteria for severe sepsis given organ dysfunctionacute renal failure lactate is less than 4 no hypotension noted at this time. Continue broad-spectrum antibiotics vancomycin/cefepime, infectious disease, general surgery to be consulted. We will also consult wound healing center. Toxic metabolic encephalopathy related to sepsis/osteomyelitis/UTI: Continue as above Acute renal failure secondary to severe sepsis: Nephrology consult in place, renal ultrasound ordered. Appreciate further input from nephrology. NSTEMI: Suspect demand ischemia from severe sepsis, BNP significantly elevated as well patient appears very malnourished, small pleural effusion on chest x-ray although patient appears very dry. Continue gentle hydration cardiology consult in place and echocardiogram ordered. Hypertension: Hold oral antihypertensive agents at this time. DVT PPX: Heparin Code status: Full Discharge Plan: Home Plan to discharge in: Greater than 2 days - Advance Directives Does patient have a Living Will: No Does patient have a Durable POA for Healthcare: Yes - Code Status/Comfort Care Code Status Assessed: Yes (Full code) Critical Care: No Time Spent Managing Pts Care (In Minutes): 70
[2022-01-22] MEDS ORDERED: VANCOMYCIN 750 MG in NA CHLORIDE 0.9% 150 ML IVPB ONE (22:15)
[2022-01-22] MEDS ORDERED: D5 0.9 NS 0 ML IV ONE (22:35)
[2022-01-22] MEDS ORDERED: CEFEPIME 1 GM/VIAL ONE (22:35)
[2022-01-22] MEDS ORDERED: D5W 1,000 ML IV ONE (22:36)
[2022-01-23] MEDS ORDERED: MORPHINE 2 MG/ML SYR IV PRN
[2022-01-23 03:56] VITALS: BMI 18.3
[2022-01-23 05:53] LABS: Absolute Lymphocytes (CBC) 1.1 K/uL (0.7-4.9); Hematocrit 21.5 % (36.0-45.0); MCV 94.6 fL (80-100); RBC Red Blood Cell Count 2.27 M/uL (3.86-4.86)
[2022-01-23 06:13] LABS: UR PROTEIN 410.4 mg/dL (<11.9); Urine Protein/Creatinine Ratio 10.8 ratio (<0.15)
--- NOTE | 2022-01-23 06:33 | P.PN ---
Date of Service: 01/23/22 Subjective: moans to loud voice, withdraws to pain no significant change since admission ROS: 10 point ROS as noted above, otherwise negative Physical exam GEN: Somnolent, moans HEENT: left sided facial dependent edema CV: Regular rate and rhythm, b/l lower extremity edema Pulm: Nonlabored respirations ABD: Soft, nondistended Neuro: somnolent, moves extremities, withdraws to pain Problem List Severe sepsis secondary to suspected sacral osteomyelitis/sacral pressure ulcer, urinary tract infection Toxic metabolic encephalopathy related to sepsis/osteomyelitis/UTI Acute renal failure secondary to severe sepsis NSTEMI Hypertension Severe sepsis secondary to suspected sacral osteomyelitis/sacral pressure ulcer, urinary tract infection Acute renal failure secondary to severe sepsis, ?nephrotic syndrome Toxic metabolic encephalopathy related to above Continue broad-spectrum antibioticsvancomycin and cefepime Infectious disease consulted Dr. Ahumada consulted, has been following patient's wound Recommends MRI CT with suspected sacral osteomyelitis Nephrology consulted, renal ultrasound ordered EBEN, patient has been having renal issues according to family lately, with s ignificant urinary protein output, concern for nephrotic syndrome Would likely benefit from a renal biopsy, however patient is in no condition to have this done at this time. Would not be appropriate for suppressive therapy at this time ED given severe sepsis Patient with left pleural effusion and peripheral edema, minimize fluid Anemia, of chronic disease baseline: 8-9, now < 7. family report recent dark, tarry stools; has had intermittent dark stools before over last months, but attributed this to iron supplementation normal color ~2 weeks ago possible UGI bleed PPI transfuse 1u PRBC Moderate protein calorie malnutrition Family state patient only takes a few bites of meals, appears very frail, thin NPO for now until mentation improves NSTEMI likely demand ischemia from severe sepsis, anemia Cardiology consulted, echocardiogram ordered hold home antihypertensives Code: DNR Dispo: Guarded prognosis > 3 days hospitalization family updated at bedside Time Spent Managing Pts Care (In Minutes): 35
[2022-01-23 06:51] LABS: Specific Gravity 1.013 (1.005-1.030); Urine Bacteria <20 /HPF (<20); Urine Bilirubin NEGATIVE (Negative); Urine Blood Trace (Negative); Urine Clarity Turbid (Clear); Urine Color Light-Yellow (Yellow); Urine Glucose NEGATIVE (Negative); Urine Mucus Slight /HPF (None Seen); Urine Protein 3+ (Negative); Urine Urobilinogen Normal (Normal); Urine WBC Clump Occasional /HPF (None Seen)
[2022-01-23] MEDS ORDERED: NA CHLORIDE 0.9% 250 ML IV SCH (07:00)
[2022-01-23 07:53] LABS: Potassium 3.7 mmol/L (3.5-5.1)
[2022-01-23 08:09] LABS: Ferritin 798.7 ng/mL (8-388)
[2022-01-23 08:33] LABS: Albumin 1.1 g/dL (3.4-5.0); Bilirubin Total 0.2 mg/dL (0.2-1.0); Magnesium 2.2 mg/dL (1.8-2.4); Protein, Total 4.2 g/dL (6.4-8.2)
[2022-01-23 08:36] LABS: Thyroid Stimulating Hormone 6.16 uIU/mL (0.360-3.740)
--- NOTE | 2022-01-23 08:39 | RAD REPORT ---
EXAM DESCRIPTION: US - Renal Ultrasound-Complete - 01/23/2022 2:27 am CLINICAL HISTORY: arf COMPARISON: Renal Ultrasound-Complete dated 08/31/2021 FINDINGS: The kidneys demonstrate increased echogenicity bilaterally. The right kidney measures 9 cm. Multiple hypoechoic renal lesions which are similar to prior. These a re likely cysts. The left kidney measures 8.3 cm. Multiple hypoechoic left renal lesions. These likely represent a com bination of simple in minimally complicated cysts. 6 mm stone in the left lower pole kidney. Linear e chogenic structure at the left kidney which is separate from the renal pelvis and not identified on t he prior. This is probably of little acute clinical significance. Shi catheter in the bladder. Trabeculated wall. IMPRESSION: Increased echogenicity of the kidneys consistent with medical renal disease. No hydronep hrosis. Bilateral renal cysts.
[2022-01-23] MEDS: D5W 1,000 ML with NA BICARB 8.4% 75 MEQ IV SCH ×2 (12:12)
--- NOTE | 2022-01-23 14:43 | CON ---
Date of Consultation: 01/23/2022 Reason For Consultation: Acute renal failure. History Of Present Illness: Ms. Bryant is a 76-year-old female with multiple medical problems includin g history of chronic malnutrition with hypoalbuminemia, worsening renal failure, peripheral vascular disease, and possibly underlying failure to thrive. She presented to [facility] yesterday after she was seen by Dr. Lopez and was found to have hypotension. Her family was gi lesia ER warnings and she continued to worsen and hence, she was brought into the hospital for further evaluation. She appeared confused, disoriented and she met SIRS criteria for sepsis and she was foun d to have infected sacral decubitus ulcer and has been admitted to the hospital with signs of sepsis and infection with acute on chronic renal insufficiency, and Nephrology consult is being requested. The patient has been not very compliant with followups and recommendations. Her daughter is reportin gabi that she refuses to eat and also refuses to go to the doctors most of the time. She had needed a b lood work done; however, that was not also done. She was found to have severe acidosis as well as ac king salmon on chronic renal insufficiency and has been started on gentle IV hydration. She remains lethargi c at this time and unable to give me any history. Past Medical History: Significant for history of hypertension, chronic back pain, coronary artery di sease, followed by Cardiology at [facility], hyperlipidemia, peripheral vascular disease, anxiety, history of stents in her heart, carotid surgery, quadruple bypass, vein stripping, history of aortic bypass i n the abdomen, peripheral vascular disease needing stents in her lower extremities, hypertension, and hyperlipidemia. Social History: She is with 4 children. Lives with her daughter and son-in-law. No history of alcohol or drug use reported. Review of Systems: Unable to be obtained. She is confused. Physical Examination: Vital Signs: At this time are showing temperature of 97.5, pulse rate of 83, respiratory rate of 16, and blood pressure 123/53. General: She appears very malnourished and cachectic with muscle wasting. She is confused. HEENT: Atraumatic head. Lungs: Auscultation of the lungs revealed bilateral equal air entry with diminished breath sounds ov erall. Abdomen: Soft and nontender. Extremities: Showed evidence of anasarca with muscle wasting. Laboratory Data: At this time showing sodium of 147, potassium of 3.7, chloride of 121, BUN of 83, b icarb of 12, and creatinine of 2.33 which is slightly better than 2.6 at the time of admission. Her troponin was noted to be elevated. Her TSH was noted to be elevated to 6.1, albumin was 1.1, and christen e T4 was noted to be 0.6. CBC showed WBC count of 21,000, hemoglobin of 6.8, hematocrit of 21.5, and platelet count of 218. Current Medications: Include cefepime 1 g every 24 hours, morphine 2 mg every 6 hours p.r.n., Zofran , vancomycin 750 mg 1 time dose was given. She is getting D5 with bicarbonate at 75 cc an hour with 1 amp of sodium bicarbonate added to D5 water. Impression: 1.Acute on chronic renal insufficiency. The patient has severe renal failure and is severely malnou rished with concern for underlying nephrotic syndrome. Concern for possible secondary amyloidosis fr om severe wound infection; however, she is not a candidate for any kind of biopsy at this time given her advanced infection and possible osteomyelitis of the sacrum. 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 Will need wound care and antibiotics . Antibiotics are being dosed appropriately. 3.Severe malnutrition. 4.Failure to thrive. 5.Peripheral vascular disease with coronary artery disease. Plan: The patient's prognosis remains poor and I have discussed this with the family in detail. At this time, I will continue the IV fluids with 1 amp of sodium bicarbonate, but at a lower rate and al so add some albumin to improve her nutritional status. I have advised to advance her diet as tolerat ed based on her mental status. She also has severe metabolic acidosis, possibly from renal insuffici ency. If she is able to take p.o. intake, we can order sodium bicarbonate, but at this time she seem s altered and would seem high risk of aspiration. Her prognosis remains guarded. We will continue t o monitor closely and adjust her medications. GUANAKO/BHAVESH Voice ID: [id number] Report ID: [id number]
[2022-01-23 20:46] LABS: Hematocrit 29.7 % (36.0-45.0)
[2022-01-23] MEDS: CEFEPIME 1 GM in NA CHLORIDE 0.9% 100 ML IV SCH (21:33)
[2022-01-23] MEDS: ALBUMIN HUMAN 25% 100 ML IV SCH (21:33)
[2022-01-24] MEDS: D5W 1,000 ML with NA BICARB 8.4% 75 MEQ IV SCH ×2 (02:32)
--- NOTE | 2022-01-24 06:15 | P.PN ---
Date of Service: 01/24/22 Subjective: slightly more awake, mumbles / 1-2 words somnolent ROS: 10 point ROS as noted above, otherwise negative Physical exam GEN: Somnolent HEENT: normal conjunctiva, sclera anicteric CV: Regular rate and rhythm, b/l lower extremity edema Pulm: Nonlabored respirations ABD: Soft, nondistended Neuro: somnolent, moves extremities, opens eyes slowly to voice Problem List Severe sepsis secondary to suspected sacral osteomyelitis/sacral pressure ulcer, urinary tract infection Toxic metabolic encephalopathy related to sepsis/osteomyelitis/UTI Acute renal failure secondary to severe sepsis NSTEMI Hypertension Severe sepsis secondary to suspected sacral osteomyelitis/sacral pressure ulcer, urinary tract infection Acute renal failure secondary to severe sepsis, ?nephrotic syndrome Toxic metabolic encephalopathy related to above Continue broad-spectrum antibioticsvancomycin and cefepime Infectious disease consulted Dr. Ahumada consulted, has been following patient's wound Recommends MRI CT with suspected sacral osteomyelitis Nephrology consulted, renal ultrasound ordered EBEN, patient has been having renal issues according to family lately, with significant urinary protein output, concern for nephrotic syndrome Would likely benefit from a renal biopsy, however patient is in no condition to have this done at this time. Would not be appropriate for suppressive the rapy at this time ED given severe sepsis Patient with left pleural effusion and peripheral edema, minimize fluid Anemia, of chronic disease baseline: 8-9, now < 7 after admission. transfused 1u PRBC on 01/23 family report recent dark, tarry stools; has had intermittent dark stools before over last months, but attributed this to iron supplementation normal color ~2 weeks ago possible UGI bleed PPI Moderate protein calorie malnutrition Family state patient only takes a few bites of meals, appears very frail, thin NPO for now until mentation improves NSTEMI likely demand ischemia from severe sepsis, anemia Cardiology consulted, echocardiogram ordered hold home antihypertensives, restart as needed Code: DNR Dispo: Guarded prognosis > 3 days hospitalization family updated at bedside 01/24 - discussed guarded prognosis, patient malnourished, deep sacral ulcer with suspected pressure ulcer; may be more appropriate for hospice Time Spent Managing Pts Care (In Minutes): 35
[2022-01-24 06:52] LABS: Absolute Lymphocytes (CBC) 0.7 K/uL (0.7-4.9); Hematocrit 29.5 % (36.0-45.0); Lymphocytes % 3.1 % (15.3-44.8); MCV 92.8 fL (80-100); MPV 9.6 fL (7.6-11.3); RBC Red Blood Cell Count 3.18 M/uL (3.86-4.86)
[2022-01-24 07:28] LABS: Albumin 1.4 g/dL (3.4-5.0); Bilirubin Total 0.3 mg/dL (0.2-1.0); Phosphorus 4.4 mg/dL (2.5-4.9); Protein, Total 4.6 g/dL (6.4-8.2)
[2022-01-24 08:02] LABS: Blood Morphology Comment NOTED (NOT SEEN); Platelet Estimate ADEQ
[2022-01-24 08:03] LABS: Anisocytosis SLIGHT
[2022-01-24] MEDS ORDERED: D5W 1,000 ML IV SCH (09:00)
[2022-01-24] MEDS: ALBUMIN HUMAN 25% 100 ML IV SCH ×2 (09:12→23:14)
--- NOTE | 2022-01-24 09:33 | RAD REPORT ---
EXAM DESCRIPTION: Jay Single View01/24/2022 6:35 am CLINICAL HISTORY: Chest pain COMPARISON: January 22, 2022 FINDINGS: Small to moderate left pleural effusion basilar atelectasis Left pulmonary opacities. Mild right pulmonary opacities. Heart is normal size. Postsurgical changes involve chest IMPRESSION: Left pulmonary opacities may indicate pneumonia Small to moderate left pleural effusion
--- NOTE | 2022-01-24 12:25 | CON ---
Date of Consultation: 01/23/2022 Reason For Consultation: Elevated troponin. History Of Present Illness: Ms. Bryant is 76. Came in with hip pain, sepsis, elevated troponin. Has a very extensive past medical history including coronary artery disease, hypertension, dyslipidemia, chronic congestive heart failure, neuropathy, peripheral arterial disease, and seizure. Was found to have troponin of 15,000, BNP was 21,000, hemoglobin was 6.8, white count of 21,000, creatinine is 2. 62. She was found to have UTI. She has osteomyelitis of her sacrum. Recent echocardiogram in August was normal. Denied any cardiac symptoms. Past Medical History: As stated above. Allergies: INCLUDE CODEINE. Review of Systems: Negative. Social History: Negative. Family History: Negative. Medications: At home include aspirin, Plavix, Coreg, Lipitor, Vasotec, nifedipine, Lasix, clonidine, Aldactone, Imdur, Neurontin, Pletal, hydralazine, and Keppra. Physical Examination: Vital Signs: Stable. She was in sinus rhythm. She was afebrile. HEENT: Negative. Neck: Supple with no bruit, lymphadenopathy, JVD, or thyromegaly. Chest: Clear to auscultation and percussion. Cardiac: Revealed a regular rhythm and rate. No murmurs, gallops, or rubs. Abdomen: Benign. Extremities: Revealed no clubbing, cyanosis, or edema. Diagnostic Data: Showed a creatinine of 2.62, white count of 21,000, hemoglobin is 6, troponin is 15 ,000, BNP 21,000. She had UTI. Impression And Plan: 1.Elevated troponin probably secondary to demand ischemia from hemoglobin of 6.8 and urinary tract i nfection and renal failure. I think she needs to have an echocardiogram, although she just had 1 4 m onths ago that was normal. 2.Urinary tract infection and osteomyelitis of her sacrum. 3.Renal failure. 4.Elevated white count. 5.Severe anemia. 6.History of coronary artery disease. 7.History of hypertension. 8.History of chronic diastolic congestive heart failure. 9.Neuropathy. 10.History of peripheral arterial disease. 11.History of seizure. Obviously, some of her medications including Vasotec, Aldactone should be he ld considering her kidney function. Nephrology consultation should be obtained. She is on antibioti cs. We will obtain an echocardiogram next week if she still here. We will continue to follow her. REYNALDO Voice ID: [id number] Report ID: [id number]
--- NOTE | 2022-01-24 12:49 | PN ---
Date of Progress Note: 01/24/2022 Ms. Bryant came in with sepsis, hip pain, elevated troponin. Today, she is feeling better. She has a very complicated past medical history. She has a 95% nasal cannula oxygen saturation, blood pressure is 193/97. Her white count had stayed stable at 22,000. Her sodium is 150, chloride is 124, CO2 is 15. Troponin is 1430. She has been seen by Nephrology, who has recommended sodium, albumin, and bi carbonate. She has sacral osteomyelitis, PAD, CAD, acute on chronic renal failure. Her medical rocky men at home includes aspirin, Plavix, Coreg, Lipitor, Vasotec, nifedipine, Lasix, clonidine, Aldacton e, Imdur, Neurontin, Pletal, hydralazine, and Keppra. Vasotec and Aldactone should be hel d. I think Lasix should be held as well. Continue present regimen. Consider an echocardiogram late andrzej CHOWDHURY/BHAVESH Voice ID: [id number] Report ID: [id number]
[2022-01-24] MEDS ORDERED: D5W 1,000 ML with POTASSIUM CL 40 MEQ IV SCH ×2 (15:00)
[2022-01-24] MEDS ORDERED: FUROSEMIDE 40 MG/4 ML VIAL IV ONE (15:00)
--- NOTE | 2022-01-24 15:25 | PN ---
Date of Progress Note: 01/24/2022 Subjective: Patient was seen and examined at bedside. She is doing okay; however, she has been havi ng some tachypnea associated with some intermittent agonal breathing. Objective: Vital Signs: Showing temperature of 97.6, pulse rate of 104, respiratory rate of 10-16, blood pressure of 162/66. She is saturating 100% on 3 L of nasal cannula oxygen. General: She appears cachectic and malnourished. She is altered, is unable to respond much. HEENT: Atraumatic head. Lungs: Auscultation of lungs revealed bilateral equal air entry anteriorly with diminished breath so unds at the bases. Abdomen: Soft and nontender. Extremities: Severe anasarca in dependent areas. Laboratory Data: Showing sodium of 150, potassium of 3, BUN of 72, and creatinine of 2.1 and chlorid e of 124. CBC showing WBC count of 22,000, hemoglobin of 9.4, hematocrit 29.5, and platelet count of 205. Current Medications: Have been reviewed in detail. Impression: 1.Acute renal failure likely secondary to acute tubular necrosis with underlying nephrotic syndrome. 2.Severe hyponatremia. 3.Altered mental status. 4.Severe malnutrition. 5.Respiratory failure, likely secondary to altered mental status with possibility of aspiration vers us metabolic encephalopathy. Plan: Patient's condition is very guarded at this time. I have discussed with the family regarding goals of care. At this time, she remains DNR. Hence, I have discontinued IV fluids at this time and given her a dose of Lasix; however, we are concerned that this could elevate the sodium furthermore. She is unable to eat or take any p.o. intake at this time. She may benefit from NG tube placement and starting free water through the NG tube. I will discuss this further with Dr. Mills if we contin ue to pursue aggressive measures. She is getting IV antibiotics for her stage IV sacral decubitus ul cer with osteomyelitis of the sacrum. She is also being followed by Dr. Ahumada. Her prognosis, ho wever, remains very, very guarded and we will continue to discuss with the family regarding goals of care. She would benefit from transitioning to palliative measures at this time. VV/MODL Voice ID: [id number] Report ID: [id number]
[2022-01-24] MEDS: CEFEPIME 1 GM in NA CHLORIDE 0.9% 100 ML IV SCH (23:14)
--- NOTE | 2022-01-25 06:56 | P.PN ---
Date of Service: 01/25/22 Subjective: patient more lethargic this morning. labs worsening discussed with family, poor prognosis at baseline, and now worsening family to pursue hospice at home ROS: 10 point ROS as noted above, otherwise negative Physical exam GEN: lethargic, attempts to opens eyes briefly HEENT: normal conjunctiva, sclera anicteric CV: Regular rate and rhythm, b/l lower extremity edema Pulm: slow, almost agonal breathing ABD: Soft, nondistended Neuro: somnolent, moves extremities, attempts to open eyes slowly to voice Problem List Severe sepsis secondary to suspected sacral osteomyelitis/sacral pressure ulcer, urinary tract infection Toxic metabolic encephalopathy related to sepsis/osteomyelitis/UTI Acute renal failure secondary to severe sepsis NSTEMI Hypertension Severe sepsis secondary to suspected sacral osteomyelitis/sacral pressure ulcer, urinary tract infection Acute renal failure secondary to severe sepsis, ?nephrotic syndrome Toxic metabolic encephalopathy related to above Continue broad-spectrum antibioticsvancomycin and cefepime Infectious disease consulted Dr. Ahumada consulted, has been following patient's wound CT with suspected sacral osteomyelitis Nephrology consulted EBEN, patient has been having renal issues according to family lately, with significant urinary protein output, concern for nephrotic syndrome Would likely benefit from a renal biopsy, however patient is in no condition to have this done at this time. Would not be appropriate for suppressive therapy at this time ED given severe sepsis Patient with left pleural effusion and peripheral edema, minimize fluid after long discussion with family on 01/24, and 01/[address] Park as well. Family have all decided / in agreement to pursue hospice at home social science manager consulted Anemia, of chronic disease baseline: 8-9, now < 7 after admission. transfused 1u PRBC on 01/23 family report recent dark, tarry stools; has had intermittent dark stools before over last months, but attributed this to iron supplementation normal color ~2 weeks ago possible UGI bleed PPI Moderate protein calorie malnutrition Family state patient only takes a few bites of meals, appears very frail, t hin NPO for now until mentation improves NSTEMI likely demand ischemia from severe sepsis, anemia Cardiology consulted, echocardiogram ordered hold home antihypertensives, restart as needed Code: DNR Dispo: home hospice, tomorrow, family arranging to receive her SW/CM consulted to assist with dispo Time Spent Managing Pts Care (In Minutes): 35
[2022-01-25] MEDS ORDERED: DEXTROSE 10%-WATER 500 ML IV ONE ×2 (08:14→12:23)
[2022-01-25 08:42] LABS: Absolute Lymphocytes (CBC) 0.8 K/uL (0.7-4.9); Hematocrit 30.6 % (36.0-45.0); Lymphocytes % 3.3 % (15.3-44.8); MCV 93.5 fL (80-100); MPV 9.5 fL (7.6-11.3); RBC Red Blood Cell Count 3.27 M/uL (3.86-4.86)
[2022-01-25] MEDS ORDERED: VANCOMYCIN 1 GM in NA CHLORIDE 0.9% 250 ML IVPB SCH (09:00)
[2022-01-25 09:01] LABS: Albumin 1.7 g/dL (3.4-5.0); Bilirubin Total 0.2 mg/dL (0.2-1.0); Magnesium 2.2 mg/dL (1.8-2.4); Phosphorus 5.3 mg/dL (2.5-4.9); Potassium 3.1 mmol/L (3.5-5.1); Protein, Total 4.7 g/dL (6.4-8.2)
[2022-01-25] MEDS: ALBUMIN HUMAN 25% 100 ML IV SCH ×2 (09:04→20:13)
[2022-01-25] MEDS: Meropenem 1,000 MG in NA CHLORIDE 0.9% 100 ML IV SCH ×2 (09:30→20:14)
[2022-01-25 10:05] LABS: Platelet Estimate ADEQ
[2022-01-25 10:06] LABS: Blood Morphology Comment NOT SEEN (NOT SEEN)
--- NOTE | 2022-01-25 13:22 | PN ---
Date of Progress Note: 01/25/2022 Subjective: The patient was seen and examined at bedside. She remains unresponsive, almost agonal, apneic. Her daughter is at bedside. Overnight, she has remained about the same. She is not able to eat any eating p.o. She is saturating 95% on 3 L of nasal cannula oxygen. She appears cachectic, m alnourished, and unresponsive. Objective: HEENT: Atraumatic head. Lungs: Auscultation of lungs revealed bilateral equal air entry with coarse breath sounds overall. Abdomen: Soft and nontender. Extremities: Showed anasarca. Laboratory Data: Has been reviewed in detail. Impression: 1.Acute renal failure secondary to ATN with possible underlying nephrotic syndrome worsening likely secondary to decreased intake of p.o. water and food. 2.Apnea with altered mental status. The patient has significant metabolic encephalopathy. Because of severe infection with sacral osteomyelitis at this point because of her severe malnutrition and se phyllis nephrotic syndrome, she is not benefitting much from IV antibiotics at this time. Her leukocyto sis was not responding to the antibiotics. She is unable to be offloaded also. Given the grave natu re of the situation and poor prognosis, the patient would benefit from transitioning to hospice. We will discuss with the patient's family with her daughter, who is a power of family law attorney at bedside and a lso with her brothers on the phone and explain poor prognosis. All questions were answered. At this time, the family would like to move forward with hospice care at home because of the poor prognosis. The plan was discussed with Dr. Mills in detail, who was also at bedside discussing with the family regarding her clinical outcomes. All questions were answered. Time spent about 45 minutes. VV/MODL Voice ID: [id number] Report ID: [id number]
--- NOTE | 2022-01-25 15:00 | CON ---
History Of Present Illness: The patient has been consulted for osteomyelitis of sacral area. After reviewing the case, family and hospitalist group have decided to make the patient for comfort care. The patient was being treated with cefepime and vancomycin. She has significant past medical history of severe protein-calorie malnourishment, hypertension, seizure disorder, CKD, sacral wound. The pa tient is not able to communicate. Most of the history was obtained through medical records and staff . Chest x-ray showed left lower lobe pneumonia. Urine culture was growing E coli and right buttock wound was growing E coli and Pseudomonas. Past Medical History: Hypertension, chronic back pain, coronary artery disease, hyperlipidemia, shaina pheral vascular disease, anxiety, 3 heart stents, carotid surgery, quadruple bypass, aortic bypass in abdomen, peripheral vascular disease, hypertension, hyperlipidemia. Social History: Nonsmoker, nondrinker. Family History: Noncontributory. Medications: Vancomycin, cefepime, and Merrem. Allergies: CODEINE. Review of Systems: Unable to obtain. Physical Examination: General: This is a 76-year-old female lying in bed. Daughter by the bedside, not in any distress. Vital Signs: Temperature 96.5, pulse 86, respiration 12, blood pressure 151/49. HEENT: Unremarkable. Neck: Supple. Lungs: Basal crackles, left more than right. Heart: S1, S2. Regular. Abdomen: Soft, nontender. Bowel sounds present. Extremity: No edema. Laboratory Data: Shows WBC 24,000, hemoglobin 9.7, platelets 169. Chemistry shows sodium 152, potas sium 3.1, chloride 126, bicarb 16, BUN 72, creatinine 2.1, glucose is 135. Assessment And Plan: Sacral osteomyelitis secondary to pressure wound in a patient with multiple med ical problems and poor prognosis. I agree with comfort care. Consider stopping antibiotic. Continu e supportive care and symptomatic care. Monitor for signs of discomfort and manage appropriately. W e will follow the patient as needed. Thank you Dr. Mills for consult. NF/MODL Voice ID: [id number] Report ID: [id number]
--- NOTE | 2022-01-25 16:01 | PN ---
Date of Progress Note: 01/25/2022 Subjective: Ms. Bryant today is in sinus rhythm, 95% nasal cannula oxygenation. No complaints. Objective: Chest: Clear. Cardiac: Within normal limit. Diagnostic Data: Showed a creatinine of 2.18, white count of 24,000. Her sodium is 152. Assessment And Plan: She is on dextrose. She is on albumin. I would hold her Lasix. Echocardiogra m is pending for tomorrow. We will continue to follow. LUCIANA/BHAVESH Voice ID: [id number] Report ID: [id number]
[2022-01-25] MEDS: CEFEPIME 1 GM in NA CHLORIDE 0.9% 100 ML IV SCH (21:44)
[2022-01-26 06:26] LABS: Absolute Lymphocytes (CBC) 0.6 K/uL (0.7-4.9); Hematocrit 26.8 % (36.0-45.0); Lymphocytes % 2.8 % (15.3-44.8); MCV 95.6 fL (80-100); MPV 9.7 fL (7.6-11.3)
[2022-01-26 06:57] LABS: Bilirubin Total 0.2 mg/dL (0.2-1.0); Magnesium 2.2 mg/dL (1.8-2.4); Potassium 3.2 mmol/L (3.5-5.1); Protein, Total 4.7 g/dL (6.4-8.2)
[2022-01-26] MEDS: Meropenem 1,000 MG in NA CHLORIDE 0.9% 100 ML IV SCH (08:57)
[2022-01-26 09:09] VITALS: O2SAT 94
[2022-01-26] MEDS ORDERED: DEXTROSE 10%-WATER 500 ML IV ONE (09:09)
--- NOTE | 2022-01-26 11:15 | P.PN ---
(S) Pt seen obtunded, no oral intake reported, daughter at bedside and case discussed in detail. She reports that she remains on board with plan for hospice given pt's multiple medical issues and is awaiting talking to the hospice agency (O) Vitals reviewed in the EMR Gen: Appears elderly, frail, chronically ill HEENT: Atruamatic, NC present Resp: b/l air entry, reduced BS at the bases CVS: RRR mostly Abd: Soft, scaphoid, NT Ext: No peripheral edema, shins are non tender Neuro: Obtunded, non verbal, no spont movement of ext observed Labs reviewed in the EMR 1. Stage II EBEN 2nd to multifactorial etiology, making about 0.5 ml/kg/hr urine currently but no other improvement seen in renal function tests. 2. Hypernatremia, metab acidosis and hypokalemia -impaired oral intake, will place on gentle D5W IVF with added sodium bicarb and KCl 3. AMS unspecified, likely multifactorial etiology. Plan for hospice noted 4. Proteinuria unspecified -Up/c suggests nephrotic range, unclear etiology, pt not a candidate for w/u with renal biopsy Enmanuel Jang MD, VINNIE
[2022-01-26] MEDS: POTASSIUM CL IV SCH ×6 (12:00)
[2022-01-26] MEDS: NA BICARB IV SCH ×6 (12:00)
[2022-01-26] MEDS: D5W IV SCH ×6 (12:00)
--- NOTE | 2022-01-26 13:39 | P.DS ---
Admission Date: 01/22/22 Discharge Date: 01/26/22 Disposition: HOSPICE-HOME Discharge Condition: FAIR Reason for Admission: Severe sepsis, UTI, sacral osteomyelitis Brief History of Present Illness: 76-year-old female with history of malnutrition, hypertension, seizures, CKD 3, sacral wound presented to the emergency department for right hip pain after a fall and open sacral wound. Patient appeared confused/disoriented. She met SIRS criteria for heart rate greater than 90, respiratory rate greater than 20, white blood cell count 22 with source of infection suspected sacral wound. Patient had CT of the chest abdomen pelvis without contrast which showed early findings osteomyelitis suspected in the sacrococcygeal region deep to the prominent ulceration, air in the urinary bladder noted could be related to infection or recent instrumentation, small left pleural effusion. No septic shock as lactic acid is 0.6 and there is no hypotension at this time. Additional labs are ordered revealing elevated troponin, elevated BNP albumin of 1.2 and a urine microscopic with loaded bacteria, greater than 50 white cells. Patient was treated with broad-spectrum antibiotics vancomycin/cefepime and admitted for further management. Hospital Course: Diagnosis: Severe sepsis secondary to suspected sacral osteomyelitis/sacral pressure ulcer, urinary tract infection Toxic metabolic encephalopathy related to sepsis/osteomyelitis/UTI Acute renal failure secondary to severe sepsis NSTEMI Hypertension Patient admitted to the medical floor with severe sepsis secondary to suspected sacral osteomyelitis/sacral pressure ulcer, urinary tract infection Acute renal failure secondary to severe sepsis. Noted proteinuria indicating possible nephrotic syndrome Toxic metabolic encephalopathy related to above Patient treated with broad-spectrum antibioticsvancomycin and cefepime Infectious disease consulted who assisted with management Dr. Ahumada consulted, has been following patient's wound CT with suspected sacral osteomyelitis Nephrology consulted Patient with left pleural effusion and peripheral edema. Patient did not respond to treatment. She she became profoundly unresponsive. Patient with multiple organ failure with poor prognosis. Hospice recommended. Family agreed to home with hospice. She is currently end-of-life. She is made DNR. She is discharged to home with hospice. Vital Signs/Physical Exam: Temp Pulse Resp BP Pulse Ox 96.9 F 86 16 144/66 H 94 01/26/22 12:00 01/26/22 12:00 01/26/22 12:00 01/26/22 12:00 01/26/22 12:00 General: Unresponsive Neck: JVD not distended Respiratory: Clear to auscultation bilaterally, Normal air movement Cardiovascular: Regular rate/rhythm, Normal S1 S2 Gastrointestinal: No ascites Laboratory Data at Discharge: WBC 21.60 K/uL (4.3-10.9) H* 01/26/22 06:01 Hgb 8.5 g/dL (12.0-15.0) L 01/26/22 06:01 Hct 26.8 % (36.0-45.0) L 01/26/22 06:01 Plt Count 132 K/uL (152-406) L D 01/26/22 06:01 PT 11.0 SECONDS (9.5-12.5) 01/22/22 14:16 INR 1.00 01/22/22 14:16 APTT 28.1 SECONDS (24.3-36.9) 01/22/22 14:16 Sodium 149 mmol/L (136-145) H 01/26/22 06:01 Potassium 3.2 mmol/L (3.5-5.1) L 01/26/22 06:01 BUN 78 mg/dL (7-18) H 01/26/22 06:01 Creatinine 2.35 mg/dL (0.55-1.3) H 01/26/22 06:01 Glucose 81 mg/dL (74-106) 01/26/22 06:01 Phosphorus 5.3 mg/dL (2.5-4.9) H 01/25/22 08:10 Magnesium 2.2 mg/dL (1.8-2.4) 01/26/22 06:01 Total Bilirubin 0.2 mg/dL (0.2-1.0) 01/26/22 06:01 AST 39 U/L (15-37) H 01/26/22 06:01 ALT 24 U/L (12-78) 01/26/22 06:01 Alkaline Phosphatase 75 U/L (45-117) 01/26/22 06:01 Home Medications: Clonidine Patch [Catapres-Tts 3*] 0.3 mg TD EVERY 7TH DAY 30 Days #4 patch.tdwk 09/03/21 Activity: Bedrest Followup: Unknown,U [Primary Care Provider] - Time spent managing pt's care (in minutes): 35
[2022-01-26 15:47] VITALS: BP 125/56; TEMP 96.8
--- NOTE | 2022-01-27 03:51 | PN ---
Date of Progress Note: 01/26/2022 Objective: VITAL SIGNS: Stable today, 125/56 blood pressure, pulse of 84, respiratory rate of 16. She is afebrile. She is at normal sinus rhythm. O2 saturation is 94% on 2 L of nasal cannula. Laboratory Data: Her last creatinine is 2.35. Last white count was 21,000. Last hemoglobin is 8.5. Her last sodium is 149 with a chloride of 124. Echocardiogram is pending for today. It is done, b ut has not been read. Her procalcitonin went down to 2.77. She remains on albumin, Lasix, antibiotics, vancomycin. Nephrology has been following her. Hydratio n has been continued. She is considered not a candidate for renal biopsy. Hospice care is planned. We will sign off. LUCIANA/BHAVESH Voice ID: [id number] Report ID: [id number]
--- NOTE | 2022-01-27 07:03 | ECHO ---
HEIGHT: 5 ft 0 in WEIGHT: 93 lb 11.2 oz DATE OF STUDY: 01/26/[address]: Narayan Abad NP 2-DIMENSIONAL: YES M.MODE: YES DOPPLER: YES COLOR FLOW: YES TDS: NO PORTABLE: YES DEFINITY: NO BUBBLE STUDY: NO DIAGNOSIS: ELEVATED TROPONIN CARDIAC HISTORY: CATHERIZATION:YES SURGERY: YES PROSTHETIC VALVE: NO PACEMAKER: NO MEASUREMENTS (cm) DIASTOLIC (NORMALS) SYSTOLIC (NORMALS) IVSd 1.1 (0.6-1.2) LA Diam 3.3 (1.9-4.0) LVEF 71% LVIDd 4.2 (3.5-5.7) LVIDs 2.5 (2.0-3.5) %FS 40% LVPWd 1.2 (0.6-1.2) Ao Diam 2.5 (2.0-3.7) 2 DIMENSIONAL ASSESSMENT: RIGHT ATRIUM: NORMAL LEFT ATRIUM: NORMAL RIGHT VENTRICLE: NORMAL LEFT VENTRICLE: NORMAL TRICUSPID VALVE: MITRAL VALVE: PULMONIC VALVE: AORTIC VALVE: NORMAL PERICARDIAL EFFUSION: SMALL AORTIC ROOT: NORMAL LEFT VENTRICULAR WALL MOTION: NORMAL DOPPLER/COLOR FLOW: SEE BELOW COMMENTS: NORMAL LEFT VENTRICULAR EJECTION FRACTION 60-65%. NORMAL WALL MOTION. LARGE PLEURAL EFFUSION. SMALL PERICARDIAL EFFUSION. MODERATE TO SEVERE MITRAL REGURGITATION. MODERATE PULMONARY HYPERTENSION WITH RIGHT VENTRICULAR SYSTOLIC PRESSURE OF 50-55 mmHg. TECHNOLOGIST: Rivas ALVARENGA
[2022-01-28 08:35] LABS: KAPPA LIGHT CHAIN, FREE SERUM 85.8 mg/L (3.3-19.4)
== END 2022-01-26 17:40 | disposition hospice, home (50) | DRG 871 ==
LOC: ER 13:47 → ERHOLD 20:04 → 4TH 01-23 02:46
PROVIDERS: ADMIT Hospitalist; ATTEND Hospitalist
DX: A41.9 Sepsis, unspecified organism (principal); L89.153 Pressure ulcer of sacral region, stage 3; G93.41 Metabolic encephalopathy; E43 Unspecified severe protein-calorie malnutrition; N17.0 Acute kidney failure with tubular necrosis; J18.9 Pneumonia, unspecified organism; I21.A1 Myocardial infarction type 2; J96.90 Respiratory failure, unspecified, unspecified whether with hypoxia or hypercapnia; N17.9 Acute kidney failure, unspecified; N39.0 Urinary tract infection, site not specified; M46.28 Osteomyelitis of vertebra, sacral and sacrococcygeal region; Z68.1 Body mass index [BMI] 19.9 or less, adult; R64 Cachexia; E87.0 Hyperosmolality and hypernatremia; E87.2 Acidosis; I13.0 Hypertensive heart and chronic kidney disease with heart failure and stage 1 through stage 4 chronic kidney disease, or unspecified chronic kidney disease; I50.32 Chronic diastolic (congestive) heart failure; K92.2 Gastrointestinal hemorrhage, unspecified; R65.20 Severe sepsis without septic shock; G40.909 Epilepsy, unspecified, not intractable, without status epilepticus; B96.20 Unspecified Escherichia coli [E. coli] as the cause of diseases classified elsewhere; L08.89 Other specified local infections of the skin and subcutaneous tissue; B96.5 Pseudomonas (aeruginosa) (mallei) (pseudomallei) as the cause of diseases classified elsewhere; E87.6 Hypokalemia; I73.9 Peripheral vascular disease, unspecified; N18.30 Chronic kidney disease, stage 3 unspecified; I25.10 Atherosclerotic heart disease of native coronary artery without angina pectoris; R62.7 Adult failure to thrive; Z95.1 Presence of aortocoronary bypass graft; Z95.5 Presence of coronary angioplasty implant and graft; Z66 Do not resuscitate; Z20.822 Contact with and (suspected) exposure to COVID-19
CPT/HCPCS: 11042; 36415; 51702; 70450; 71045; 71250; 72125; 76770; 80048; 80053; 80076; 80202; 81001; 81015; 82040; 82550; 82570; 82728; 82947; 83520; 83540; 83605; 83735; 83880; 83935; 84100; 84132; 84134; 84145; 84155; 84156; 84300; 84439; 84443; 84466; 84484; 85014; 85018; 85025; 85610; 85730; 86021; 86140; 86160; 86255; 86335; 86850; 86900; 86901; 87040; 87070; 87077; 87086; 87088; 87186; 87205; 87811; 93306; 96361; 96365; 96367; 96375; 99284; J0692; J1940; J2185; J2270; J2405; J2543; J3370; J3480; J7030; J7040; J7042; J7050; P9016; P9047